=== PATIENT | female | born 1985 | race American Indian/Alaskan Native ===

== ENCOUNTER 2017-05-07 23:43 | Inpatient (IN) | payer BC, OTHER ==
[2017-05-07 23:45] VITALS: BMI 20.5
--- NOTE | 2017-05-08 00:03 | ED PDOC ---
Arrival/HPI <Terry Mckeon - Last Filed: 05/08/17 03:01> - General Historian: Patient - History of Present Illness Time/Duration: 24 hours Symptom Course: Unchanged Quality: Unable to Describe Severity Level: Moderate Context: Sitting, Exertion, Home, Work <Zackery Saab - Last Filed: 05/08/17 06:12> - General Chief Complaint: Palpitations Time Seen by Provider: 05/07/17 23:51 - History of Present Illness Narrative History of Present Illness (Text): 05/08/17 00:00 This is a 31 yo female with no past medical hx presenting to ER with chief complaint of palpitations. 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 Pt says they have been going on x 1 day. They started when she was sitting at work yesterday. She put herself on tele monitor and noticed her HR was very high. She reports an associated lightheaded feeling. Denies chest pain, shortness of breath, fevers, chills, nausea, vomiting, diarrhea, other systemic sx. PMH: Denies PSH: C section FH: heart dx in family Allergies: NKDA Home meds: recently started taking cyproheptadine for decreased appetite Social hx: denies smoking. social drinker. denies drug use. Lives at home with son and brother. Works as a nurse. 05/08/17 01:30 (Zackery Saab) Past Medical History - Provider Review Nursing Documentation Reviewed: Yes - Travel History Have you recently traveled outside [place] w/in the past 3 mons?: No - Past History Past History: No Previous - Infectious Disease Hx of Infectious Diseases: None - Tetanus Immunization Tetanus Immunization: Unknown - Reproductive Menopause: No Currently : No - Psychiatric Hx Substance Use: No <Zackery Saab - Last Filed: 05/08/17 06:12> Family/Social History - Physician Review Nursing Documentation Reviewed: Yes Family/Social History: Hypertension, CAD/IA Smoking Status: Never Smoked Hx Alcohol Use: Yes Frequency of alcohol use: Socially Hx Substance Use: No Hx Substance Use Treatment: No <Zackery Saab - Last Filed: 05/08/17 06:12> Allergies/Home Meds <Terry Mckeon - Last Filed: 05/08/17 03:01> <Zackery Saab - Last Filed: 05/08/17 06:12> Allergies/Adverse Reactions: Allergies NSAIDS (Non-Steroidal Anti-Inflamma Allergy (Verified 05/08/17 03:29) SWELLING FACIAL SWELLING Home Medications: Home Meds Medication Instructions Recorded Confirmed No Known Home Med 05/07/17 05/07/17 Review of Systems - Review of Systems Constitutional: absent: Fatigue, Weight Change Eyes: absent: Vision Changes, Photophobia ENT: absent: Hearing Changes, Tinnitus Respiratory: absent: SOB, Cough Cardiovascular: Palpitations. absent: Chest Pain Gastrointestinal: absent: Abdominal Pain, Stool Changes Genitourinary Female: absent: Dysuria, Frequency Musculoskeletal: absent: Arthralgias, Back Pain Skin: absent: Rash, Pruritis Neurological: Dizziness. absent: Headache Endocrine: absent: Diaphoresis, Polyuria Hemo/Lymphatic: absent: Adenopathy, Easy Bleeding Psychiatric: absent: Anxiety, Depression <Zackery Saab - Last Filed: 05/08/17 06:12> Physical Exam Appearance: Positive for: Well-Appearing Mental Status: Positive for: Alert and Oriented X 3 - Systems Exam Head: Present: Atraumatic, Normocephalic Pupils: Present: PERRL Extroacular Muscles: Present: EOMI Mouth: Present: Moist Mucous Membranes Neck: Present: Normal Range of Motion Respiratory/Chest: Present: Clear to Auscultation. No: Respiratory Distress Cardiovascular: Present: Normal S1, S2, Tachycardic Abdomen: No: Tenderness, Distention, Peritoneal Signs Upper Extremity: Present: Normal Inspection. No: Cyanosis, Edema Lower Extremity: Present: Normal Inspection. No: Edema Neurological: Present: CN II-XII Intact, Speech Normal Skin: Present: Warm, Dry Psychiatric: Present: Alert, Oriented x 3, Normal Insight, Normal Concentration <Zackery Saab - Last Filed: 05/08/17 06:12> Vital Signs Temp Pulse Resp BP Pulse Ox 05/08/17 01:45 98.6 F 110 H 15 118/83 98 05/07/17 23:51 97.8 F 106 H 18 115/74 98 Medical Decision Making <Terry Mckeon - Last Filed: 05/08/17 03:01> - EKG Interpretation Interpreted by ED Physician: Yes Type: 12 lead EKG <Zackery Saab Filed: 05/08/17 06:12> ED Course and Treatment: Patient Seen With Resident: In agreement with resident note which contains more details about the patient. Patient was seen and evaluated with resident. Came up with plan and treatment together. (Terry Mckeon) 05/08/17 01:41 -case discussed with Dr. Elder -pt admitted to service of Dr. Wynn -medical translator paged (Zackery Saab) - Lab Interpretations Lab Results: 05/08/17 00:09 05/08/17 00:09 Lab Results 05/08/17 01:11: Urine Color Yellow, Urine Appearance Clear, Urine pH 6.0, Ur Specific [place] 1.025, Urine Protein 30 H, Urine Glucose (UA) Negative, Urine Ketones Negative, Urine Blood Moderate H, Urine Nitrate Positive H, Urine Bilirubin Negative, Urine Urobilinogen 0.2, Ur Leukocyte Esterase Small H, Urine RBC 1 - 3, Urine WBC 25 - 30, Ur Epithelial Cells 1 - 3, Urine Bacteria Mod 05/08/17 00:40: Urine Opiates Screen Negative, Urine Methadone Screen Negative, Ur Barbiturates Screen Negative, Ur Phencyclidine Scrn Negative, Ur Amphetamines Screen Negative, U Benzodiazepines Scrn Negative, U Oth Cocaine Metabols Negative, U Cannabinoids Screen Negative 05/08/17 00:24: POC Glucose (mg/dL) 103 05/08/17 00:09: TSH 3rd Generation 0.94 05/08/17 00:09: Sodium 141, Potassium 3.7, Chloride 104, Carbon Dioxide 25, Anion Gap 17, BUN 10, Creatinine 0.8, Est GFR ( Amer) > 60, Est GFR (Non- Af Amer) > 60, Random Glucose 100, Calcium 10.3, Magnesium 1.7, Total Bilirubin 0.5, AST 45 H, ALT 24, Alkaline Phosphatase 65, Troponin I < 0.01, Total Protein 8.2, Albumin 4.6, Globulin 3.5, Albumin/Globulin Ratio 1.3 05/08/17 00:09: WBC 12.2 H, RBC 4.19, Hgb 12.9, Hct 35.9 L, MCV 85.7, MCH 30.8, MCHC 35.9, RDW 13.2, Plt Count 258, MPV 10.4, Gran % 70.2 H, Lymph % (Auto) 23.9 , [place] % (Auto) 5.1, Eos % (Auto) 0.6 L, Baso % (Auto) 0.2, Gran # 8.58 H, Lymph # 2.9, [place] # 0.6, Eos # 0.1, Baso # 0.02 - EKG Interpretation EKG Interpretation (Text): 05/08/17 01:52 -initial ekg shows sinus tachycardia with PACS at rate of 104 -repeat ekg shows sinus tachycardia with PVCs at rate of 118 (Zackery Saab) - Medication Orders Current Medication Orders: Famotidine (Pepcid) 20 mg IVP DAILY MARITZA Heparin Sodium (Porcine) (Heparin) 5,000 units SC Q8 MARITZA PRN Reason: Protocol Last Admin: 05/08/17 05:45 Dose: Not Given Non-Admin Reason: Patient Refused Sodium Chloride (Sodium Chloride 0.9%) 1,000 mls @ 100 mls/hr IV .Q10H MARITZA Last Admin: 05/08/17 06:10 Dose: Discontinued Medications Sodium Chloride (Sodium Chloride 0.9%) 1,000 mls @ 75 mls/hr IV .[id number] MARITZA Sodium Chloride 1,000 ml/ IV (SUPPLIES) 1,000 mls @ 3,674.1 mls/hr IV ONCE ONE PRN Reason: 60 ML/KG/HR Stop: 05/08/17 02:09 Last Admin: 05/08/17 02:29 Dose: 3,674.1 mls/hr eMAR Start Stop Document 05/08/17 02:29 AB (Rec: 05/08/17 02:30 AB [facility] [id number]) Intravenous Solution Start Date 05/08/17 Start Time 02:09 End Date 05/08/17 End time 02:39 Total Infusion Time 30 Sodium Chloride (Sodium Chloride 0.9%) 1,000 mls @ 75 mls/hr IV .[id number] MARITZA Last Admin: 05/08/17 02:46 Dose: 75 mls/hr eMAR Start Stop Document 05/08/17 02:46 AB (Rec: 05/08/17 02:46 AB [facility] [id number]) Intravenous Solution Start Date 05/08/17 Start Time 02:46 Ciprofloxacin (Cipro 400mg/200ml Dsw) 400 mg in 200 mls @ 133.3 mls/hr IVPB Q12 MARITZA PRN Reason: Protocol Stop: 05/08/17 04:31 Last Admin: 05/08/17 02:52 Dose: 133.3 mls/hr eMAR Start Stop Document 05/08/17 02:52 AB (Rec: 05/08/17 02:52 AB [facility] [facility] [id number][place] Intravenous Solution Start Date 05/08/17 Start Time 02:52 End Date 05/08/17 Tramadol HCl (Ultram) 25 mg PO STAT STA Stop: 05/08/17 03:34 Last Admin: 05/08/17 03:52 Dose: 25 mg MAR Pain Assessment Document 05/08/17 03:52 CDE (Rec: 05/08/17 03:53 CDE [id number]) Pain Reassessment Is this a pain reassessment? No Presence of Pain Presence of Pain Yes Pain Scale Used Pain Scale Used Numeric Location Upper or Lower Lower Pain Location Body Site Back Description Description Constant Alleviating Factors Medication - PA / WEDGER / Resident Statement MD/DO has reviewed & agrees with the documentation as recorded. /DO has examined the patient and agrees with the treatment plan. <Terry Mckeon - Last Filed: 05/08/17 03:01> Disposition/Present on Arrival <Terry Mckeon - Last Filed: 05/08/17 03:01> - Present on Arrival Any Indicators Present on Arrival: No History of DVT/PE: No History of Uncontrolled Diabetes: No Urinary Catheter: No History of Decub. Ulcer: No History Surgical Site Infection Following: None - Disposition Have Diagnosis and Disposition been Completed?: Yes Disposition Time: 03:00 Patient Plan: Admission <Zackery Saab - Last Filed: 05/08/17 06:12> - Disposition Diagnosis: Near syncope Disposition: HOSPITALIZED Condition: STABLE
[2017-05-08 00:33] LABS: BASO # 0.02 K/mm3 (0.0-2.0); BASO % 0.2 % (0.0-3.0); EOS # 0.1 (0.0-0.7); EOS % 0.6 % (1.5-5.0); GRAN # 8.58 (1.4-6.5); GRAN % 70.2 % (50.0-68.0); HEMATOCRIT 35.9 % (36.0-48.0); LYMPH # 2.9 (1.2-3.4); LYMPH % 23.9 % (22.0-35.0); MEAN CELL VOLUME 85.7 fl (80.0-105.0); MEAN CORPUSCULAR HEMOGLOBIN 30.8 pg (25.0-35.0); MEAN CORPUSCULAR HGB CONC 35.9 g/dl (31.0-37.0); MEAN PLATELET VOLUME 10.4 fl (7.0-11.0); MONO # 0.6 (0.1-0.6); MONO % 5.1 % (1.0-6.0); RED CELL DISTRIBUTION WIDTH 13.2 % (11.5-14.5); WHITE BLOOD COUNT 12.2 10^3/ul (4.5-11.0)
[2017-05-08 00:40] LABS: ALB/GLOB RATIO 1.3 (1.1-1.8); ALKALINE PHOSPHATASE 65 U/L (38-126); ALT/SGPT 24 U/L (7-56); AST/SGOT 45 U/L (14-36); BILIRUBIN,TOTAL 0.5 mg/dL (0.2-1.3); BLOOD UREA NITROGEN 10 mg/dL (7-21); CALCIUM 10.3 mg/dL (8.4-10.5); CARBON DIOXIDE 25 mmol/L (21-33); CHLORIDE 104 mmol/L (98-107); GFR AFRICAN-AMERICAN > 60; GLUCOSE,RANDOM 100 mg/dL (70-110); MAGNESIUM 1.7 mg/dL (1.7-2.2); POTASSIUM 3.7 mmol/L (3.6-5.0); SODIUM 141 mmol/L (132-148); TOTAL PROTEIN 8.2 g/dL (5.8-8.3)
[2017-05-08 00:51] LABS: TROPONIN I < 0.01 ng/mL
[2017-05-08 01:30] LABS: URINE BILIRUBIN NEGATIVE (NEGATIVE); URINE BLOOD MODERATE (NEGATIVE); URINE GLUCOSE (UA) NEGATIVE (NEGATIVE); URINE KETONE NEGATIVE (NEGATIVE); URINE LEUKOCYTE ESTERASE SMALL Leu/uL (NEGATIVE); URINE PROTEIN 30 mg/dL (<30 mg/dL); URINE UROBILINOGEN 0.2 E.U./dL (<1 E.U./dL)
[2017-05-08 01:31] LABS: URINE APPEARANCE CLEAR (CLEAR); URINE COLOR YELLOW (YELLOW)
[2017-05-08 01:42] LABS: URINE BACTERIA MOD (NEG); URINE WBC 25 - 30 /hpf (0-6)
--- NOTE | 2017-05-08 01:59 | CP.PCM.HP ---
History of Present Illness - History of Present Illness History of Present Illness: CC: Palpitations Subjective: HPI: Patient is a 31 year old female with no significant past medical history who presents to the emergency department for evaluation and treatment of palpitations. Patient states she began experiencing palpitations yesterday morning while at work with no provoking event. This is the first occurrence of such symptoms. Patient is a nurse at [employer]. She put herself on tele monitor and noticed her HR was elevated. Admits to localized retrosternal chest tightness when the palpitations are occurring with associated lightheadedness. Denies recent travel and sick contacts. Patient denies intractable headache, fever, chills, dizziness, shortness of breath, abdominal pain, nausea, vomiting, diarrhea, constipation, and urinary symptoms. ROS: 12 point review of systems negative except as indicated in HPI PMHx: none PSHx: c section, tonsillectomy Allergies- NSAIDs- "face becomes swollen" Family Hx: mother- ovarian cancer, father- HIV Social Hx: denies ETOH use, denies tobacco use, denies illicit drug use, works as nurse in [employer] Medications: Please see medication reconciliation PMD: Dr. Chapa in [place] Pharmacy: none Physical Examination: - Constitutional Appears: Non-toxic, No Acute Distress - Head Exam Head Exam: atraumatic, normocephalic - Eye Exam Eye Exam: Normal appearance, PERRL. absent: Scleral icterus - ENT Exam ENT Exam: Mucous Membranes Moist - Neck Exam Neck exam: Normal Inspection - Respiratory Exam Respiratory Exam: Normal Breathing Pattern - Cardiovascular Exam Cardiovascular Exam: tachycardic, +S1, +S2. absent: Gallop, JVD - GI/Abdominal Exam GI & Abdominal Exam: Normal Bowel Sounds, absent: Distended, Guarding, Pulsatile Mass, Rebound, Rigid - Extremities Exam Extremities exam: Negative for: calf tenderness - Neurological Exam Neurological exam: Patient is awake, alert, responds to verbal stimuli, answers questions appropriately, follows commands, and moves extremities past midline - Psychiatric Exam Psychiatric exam: Normal Affect, Normal Mood - Skin Skin Exam: warm and dry Assessment and Plan: Patient is a 29 year old female with no significant past medical history who presents to the emergency department for evaluation and treatment of palpitations. Palpitations - EKGs reviewed and appreciated- sinus tachycardia with intermittent PVCs vs fusion complxes HR 118, QTc 437 - Cardiology consulted- appreciate recommendations - UDS negative - Troponins negative x 1 - cardiac isoenzymes q8h x 3 - place on tele monitor Sepsis; UTI - greater than 2/4 SIRS criteria met in setting of infectious source (elevated white count and tachycardic) - ED contacted to call code sepsis- they want to attain lactate prior to calling code sepsis, lactate is pending - UA positive for leukocyte esterase, nitrates, and urine bacteria - blood cultures x 2 - urine culture - IVF bolus - IVF NS @ 100 after bolus - cipro 400mg IV BID Elevated LFTs - avoid hepatotoxins - monitor closely via CMP - hepatits panel pending - HIV rapid screen pending Prophylaxis - DVT ppx- subq heparin as per immanuel score - GI ppx- famotidine Patient case discussed with and plan approved by attending physician, Dr. Curtis Elder. 05/08/17 01:44 Present on Admission - Present on Admission Any Indicators Present on Admission: No Past Patient History - Infectious Disease Hx of Infectious Diseases: None - Tetanus Immunizations Tetanus Immunization: Unknown - Past Social History Smoking Status: Never Smoked - PSYCHIATRIC Hx Substance Use: No Meds Allergies/Adverse Reactions: Allergies Allergy/AdvReac Type Severity Reaction Status Date / Time NSAIDS (Non-Steroidal Allergy SWELLING Verified 05/08/17 03:29 Anti-Inflamma Results - Vital Signs Recent Vital Signs: Last Vital Signs Temp 97.8 F 05/07/17 23:51 Pulse 106 H 05/07/17 23:51 Resp 18 05/07/17 23:51 BP 115/74 05/07/17 23:51 Pulse Ox 98 05/07/17 23:51 - Labs Result Diagrams: 05/08/17 05:40 05/08/17 00:09 Labs: Laboratory Results - last 24 hr 05/08/17 05/08/17 05/08/17 00:09 00:09 00:09 WBC 12.2 H RBC 4.19 Hgb 12.9 Hct 35.9 L MCV 85.7 MCH 30.8 MCHC 35.9 RDW 13.2 Plt Count 258 MPV 10.4 Gran % 70.2 H Lymph % (Auto) 23.9 [place] % (Auto) 5.1 Eos % (Auto) 0.6 L Baso % (Auto) 0.2 Gran # 8.58 H Lymph # 2.9 [place] # 0.6 Eos # 0.1 Baso # 0.02 Sodium 141 Potassium 3.7 Chloride 104 Carbon Dioxide 25 Anion Gap 17 BUN 10 Creatinine 0.8 Est GFR ( Amer) > 60 Est GFR (Non-Af Amer) > 60 POC Glucose (mg/dL) Random Glucose 100 Calcium 10.3 Magnesium 1.7 Total Bilirubin 0.5 AST 45 H ALT 24 Alkaline Phosphatase 65 Troponin I < 0.01 Total Protein 8.2 Albumin 4.6 Globulin 3.5 Albumin/Globulin Ratio 1.3 TSH 3rd Generation 0.94 Urine Color Urine Appearance Urine pH Ur Specific [place] Urine Protein Urine Glucose (UA) Urine Ketones Urine Blood Urine Nitrate Urine Bilirubin Urine Urobilinogen Ur Leukocyte Esterase Urine RBC Urine WBC Ur Epithelial Cells Urine Bacteria Urine Opiates Screen Urine Methadone Screen Ur Barbiturates Screen Ur Phencyclidine Scrn Ur Amphetamines Screen U Benzodiazepines Scrn U Oth Cocaine Metabols U Cannabinoids Screen 05/08/17 05/08/17 05/08/17 00:24 00:40 01:11 WBC RBC Hgb Hct MCV MCH MCHC RDW Plt Count MPV Gran % Lymph % (Auto) [place] % (Auto) Eos % (Auto) Baso % (Auto) Gran # Lymph # [place] # Eos # Baso # Sodium Potassium Chloride Carbon Dioxide Anion Gap BUN Creatinine Est GFR ( Amer) Est GFR (Non-Af Amer) POC Glucose (mg/dL) 103 Random Glucose Calcium Magnesium Total Bilirubin AST ALT Alkaline Phosphatase Troponin I Total Protein Albumin Globulin Albumin/Globulin Ratio TSH 3rd Generation Urine Color Yellow Urine Appearance Clear Urine pH 6.0 Ur Specific [place] 1.025 Urine Protein 30 H Urine Glucose (UA) Negative Urine Ketones Negative Urine Blood Moderate H Urine Nitrate Positive H Urine Bilirubin Negative Urine Urobilinogen 0.2 Ur Leukocyte Esterase Small H Urine RBC 1 - 3 Urine WBC 25 - 30 Ur Epithelial Cells 1 - 3 Urine Bacteria Mod Urine Opiates Screen Negative Urine Methadone Screen Negative Ur Barbiturates Screen Negative Ur Phencyclidine Scrn Negative Ur Amphetamines Screen Negative U Benzodiazepines Scrn Negative U Oth Cocaine Metabols Negative U Cannabinoids Screen Negative
[2017-05-08] MEDS ORDERED: Sodium Chloride 0.9% 1,000 ML IV SCH ×2 (02:15)
[2017-05-08 02:41] LABS: CHOLESTEROL 129 mg/dL (130-200)
[2017-05-08 02:53] LABS: TROPONIN I < 0.01 ng/mL
[2017-05-08] MEDS ORDERED: Ciprofloxacin 400mg/200ml D5W 400 MG/200 ML BAG IVPB SCH (03:00)
[2017-05-08 03:14] LABS: VENOUS BLOOD GAS BASE EXCESS 2.1 mmol/L (0.0-2.0); VENOUS BLOOD PH 7.35 (7.32-7.43)
[2017-05-08] MEDS: Sodium Chloride 0.9% 1,000 ML IV SCH ×3 (06:10→16:41)
[2017-05-08 06:30] LABS: BASO # 0.01 K/mm3 (0.0-2.0); BASO % 0.1 % (0.0-3.0); EOS % 0.1 % (1.5-5.0); GRAN # 11.51 (1.4-6.5); HEMATOCRIT 31.7 % (36.0-48.0); LYMPH # 0.8 (1.2-3.4); MEAN CELL VOLUME 85.2 fl (80.0-105.0); MEAN CORPUSCULAR HEMOGLOBIN 30.1 pg (25.0-35.0); MEAN CORPUSCULAR HGB CONC 35.3 g/dl (31.0-37.0); MEAN PLATELET VOLUME 10.2 fl (7.0-11.0); MONO # 0.9 (0.1-0.6); MONO % 6.8 % (1.0-6.0); RED CELL DISTRIBUTION WIDTH 13.1 % (11.5-14.5); WHITE BLOOD COUNT 13.2 10^3/ul (4.5-11.0)
[2017-05-08 07:03] LABS: ALB/GLOB RATIO 1.2 (1.1-1.8); ALKALINE PHOSPHATASE 57 U/L (38-126); ALT/SGPT 20 U/L (7-56); AST/SGOT 17 U/L (14-36); BILIRUBIN,TOTAL 0.9 mg/dL (0.2-1.3); BLOOD UREA NITROGEN 10 mg/dL (7-21); CARBON DIOXIDE 25 mmol/L (21-33); CHLORIDE 107 mmol/L (98-107); GFR AFRICAN-AMERICAN > 60; GLUCOSE,RANDOM 106 mg/dL (70-110); POTASSIUM 3.6 mmol/L (3.6-5.0); SODIUM 138 mmol/L (132-148); TOTAL PROTEIN 6.7 g/dL (5.8-8.3)
[2017-05-08 07:55] LABS: TROPONIN I < 0.01 ng/mL
--- NOTE | 2017-05-08 08:29 | RAD ---
HISTORY: palpitations COMPARISON: No prior. FINDINGS: LUNGS: No active pulmonary disease. PLEURA: No significant pleural effusion identified, no pneumothorax apparent. CARDIOVASCULAR: Normal. OSSEOUS STRUCTURES: No significant abnormalities. VISUALIZED UPPER ABDOMEN: Normal. OTHER FINDINGS: None. IMPRESSION: No active disease.
[2017-05-08] MEDS: cefTRIAXone 1 gm 1 GM/100 ML BAG IVPB SCH (11:40)
[2017-05-08] MEDS ORDERED: Metoprolol 1 mg/ml Inj IVP ONE ×2 (12:15→12:17)
[2017-05-08 12:19] LABS: IRON 22 ug/dL (45-180)
[2017-05-08] MEDS ORDERED: Potassium Chloride 20 mEq ER Tab PO ONE (12:28)
--- NOTE | 2017-05-08 12:29 | US ---
PROCEDURE: Ultrasound of the Kidneys HISTORY: R/o pyelonephritis( Kidney, Bladder) COMPARISON: None available. TECHNIQUE: Sonogram of the kidneys. FINDINGS: RIGHT KIDNEY: Measures: 11.4 x 4.6 x 6.0 cm. Normal in size, contour and echogenicity. No stone, solid mass lesion or hydronephrosis visualized. LEFT KIDNEY: Measures: 10.6 x 5.1 x 4.8 cm. Normal in size, contour and echogenicity. No stone, solid mass lesion or hydronephrosis visualized. OTHER FINDINGS: None. IMPRESSION: Unremarkable renal sonogram.
[2017-05-08] MEDS ORDERED: Propranolol 5 mg Tab PO STA (12:31)
--- NOTE | 2017-05-08 12:34 | US ---
PROCEDURE: HISTORY: RETENTION COMPARISON: None TECHNIQUE: Transabdominal scanning of the pelvis performed FINDINGS: Bladder is moderately distended prevoid urine volume 257 mL. No bladder wall thickening or intraluminal masses. Bilateral ureteral jets noted. 0 mL postvoid residual urine volume IMPRESSION: No postvoid residual urine volume. Unremarkable appearing bladder
[2017-05-08] MEDS: Magnesium Oxide 400 mg Tab UD PO SCH ×2 (12:40→17:38)
--- NOTE | 2017-05-08 14:38 | PCM.RRT ---
WOOD MILLER Nurse Assessment - Situation Date: 05/08/17 Time WOOD MILLER was called: 12:11 WOOD MILLER Responder Arrival Time: 12:14 WOOD MILLER Location:: [address] [place] [address] Room Number: [id number] WOOD MILLER Reason for Call: Tachycardia WOOD MILLER Called By: RN - IV IV Inserted during WOOD MILLER?: No - Respiratory Oxygen Delivery Method: Nasal Cannula @L/min Oxygen Flow Rate: 2 Received Nebulizer Treatments:: No Was the Patient Ventilated with Bag/Mask 100% O2?: No Secretions Suctioned?: No Was the Patient Intubated?: No Was the Patient Placed on a Ventilator?: No - Medication Medications Administered During WOOD MILLER: 5mg IVP metoprolol. 5 mg Inderol. 40meq potassium. 400mg magnesium - Diagnostic Test Ordered EKG: Yes Chest X-Ray: No CT Scan: No - Stat Labs Ordered WOOD MILLER Stat Labs Ordered: TROPONIN CPR started during WOOD MILLER?: No - Vital Signs Vital Sign: Rapid Response Vital Sign Blood Pressure 124/67 Pulse Rate 204 Respiratory Rate 16 Temperature 98.5 F Oxygen Saturation 100 - Finger Stick Blood Glucose Finger Stick Blood Glucose: 101 - Time WOOD MILLER Ended Time WOOD MILLER Ended: 12:38 - Vital Signs at end of WOOD MILLER Vital Signs at end of WOOD MILLER: Rapid Response End Vital Sign Blood Pressure 110/54 Pulse Rate 170 Respiratory Rate 16 Temperature 98.0 F O2 Sat by Pulse Oximetry 100 - Recommendations Notifications: Attending Physician, Consultations - Respiratory Oxygen Delivery Method: Nasal Cannula @L/min Oxygen Flow Rate: 2 - Head Head Exam: ATRAUMATIC, NORMAL INSPECTION, NORMOCEPHALIC - Eyes Eye Exam: EOMI, Normal appearance, PERRL. absent: Periorbital tenderness - Respiratory Exam Respiratory Exam: Clear to Ausculation Bilateral, NORMAL BREATHING PATTERN. absent: Chest Wall Tenderness, Prolonged Expiratory Phase, Respiratory Distress - Cardiovascular Exam Cardiovascular Exam: Tachycardia, REGULAR RHYTHM, +S1, +S2. absent: Gallop, Rubs - GI/Abdominal Exam GI & Abdominal Exam: Soft, Normal Bowel Sounds. absent: Guarding, Rigid, Hyperactive Bowel Sounds - Neurological Exam Neurological Exam: Alert, Awake, CN II-XII Intact, Normal Gait, Oriented x3 - Extremities Exam Extremities Exam: Full ROM, Normal Inspection. absent: Joint Swelling, Pedal Edema, Tenderness Plan - Assessment of Findings&Treatment Plan 31 year old female with no past medical history who a rapid response was called as a result of a heart rate in the 200's and complains of palpitations. Patient was seen by medical team and examined. Patient denies any lightheadedness, dizziness, shortness of breath, blurry vision, syncopal episodes, diaphoresis, abdominal, nausea, vomiting, or any other complaints. Dr. Massey and Dr. Jeter were made aware of the patient's condition. Plan: -5 mg Lopressor -5 mg Inderal -Troponins x3. Trend. -STAT EKG -40mg PO of Potassium given. -400mg of Magnesium Oxide given BID. -STAT CBC, CMP, Magnesium, Phosphorous. Will f/u with results.
--- NOTE | 2017-05-08 17:53 | CARD ---
APPROVED REPORT EXAM: Two-dimensional and M-mode echocardiogram with Doppler and color Doppler. INDICATION Palpitations 2D DIMENSIONS Left Atrium (2D)3.5 (1.6-4.0cm)IVSd1.1 (0.7-1.1cm) LVDd3.9 (3.9-5.9cm)PWd1.1 (0.7-1.1cm) LVDs2.7 (2.5-4.0cm)FS (%) 32.2 % LVEF (%)61.0 (>50%) Aortic Valve AoV Peak Wimnlvrp284.0cm/Michael Peak GR.8mmHg Mitral Valve E/A ratio0.0 TDI E/Lateral E'0.0E/Medial E'0.0 Tricuspid Valve TR Peak [id number] [id number] Peak Gr.13mmHg [id number] LEFT VENTRICLE The left ventricle is normal size. There is normal left ventricular wall thickness. The left ventricular function is normal.EF-60-65% There is normal LV segmental wall motion. The left ventricular diastolic function is normal. No left ventricle thrombus noted on this study. There is no ventricular septal defect visualized. There is no left ventricular aneurysm. There is no mass noted in the left ventricle. RIGHT VENTRICLE The right ventricle is normal size. There is normal right ventricular wall thickness. The right ventricular systolic function is normal. ATRIA The left atrium size is normal. The right atrium size is normal. The interatrial septum is intact with no evidence for an atrial septal defect. AORTIC VALVE The aortic valve is normal in structure. No aortic regurgitation is present. There is no aortic valvular stenosis. There is no aortic valvular vegetation. MITRAL VALVE The mitral valve is thickened but opens well. Mitral regurgitation is trace. There is no mitral valve stenosis. There is no evidence of mitral valve prolapse. TRICUSPID VALVE The tricuspid valve leaflets are thickened , but open well. There is trace tricuspid regurgitation.[id number]-23 mmof hg. There is no tricuspid valve stenosis. There is no tricuspid valve prolapse or vegetation. PULMONIC VALVE The pulmonic valve is borderline thickened. There is no pulmonic valvular regurgitation. There is no pulmonic valvular stenosis. GREAT VESSELS The aortic root is normal in size. The ascending aorta is normal in size. The pulmonary artery is normal. The IVC is normal in size and collapses >50% with inspiration. PERICARDIAL EFFUSION There is no pleural effusion. There is no pericardial effusion. <Conclusion> Normal chamber Size. EF-60-65% Trace MR/TR [id number] mmof hg.
[2017-05-08] MEDS ORDERED: Sodium Chloride 0.9% 500 ML IV STA (18:40)
[2017-05-08 18:45] LABS: FOLATE 3.7 ng/mL
[2017-05-08 18:53] LABS: TROPONIN I < 0.01 ng/mL
--- NOTE | 2017-05-08 20:23 | CON ---
DATE: 05/09/2017 CONSULTING SERVICE: Cardiology. CONSULTING PHYSICIAN: Dr. Brent Massey. REASON FOR CONSULTATION: Palpitation, dizzy, and chest pain. 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 Denies any chest pain, but feels with palpitation and chest discomfort. No prior episode of chest pain or climbing stairs or going up and down. No history of prior episode of chest pain or shortness of breath or palpitation prior to yesterday. PAST MEDICAL HISTORY: Nothing significant. CURRENT MEDICATIONS: None. FAMILY HISTORY: Nothing significant. PAST SURGICAL HISTORY: Significant for tonsillectomy at the age of 20 and hysterectomy at 10 years ago. ALLERGIES: NSAID GETS ANGIOEDEMA. REVIEW OF SYSTEMS: As per HPI. PHYSICAL EXAMINATION: VITAL SIGNS: As follows; temperature 98.4, heart rate 110, blood pressure 103/59. HEENT: PERRLA intact. NECK: Supple. No carotid bruits or thyromegaly. CHEST: Clear to auscultation. HEART: S1 and S2 regular. ABDOMEN: Soft. EXTREMITIES: Clubbing and cyanosis negative. LABORATORY DATA: Blood workup as follows: WBC 13.2, hemoglobin 11.2, hematocrit 31.7, platelet count 218. Chemistry shows sodium 138, potassium 3.6, chloride 110, carbon dioxide 25, anion gap of 9, BUN 10, creatinine 0.7. Urine shows moderate blood, positive for nitrites and elevated WBC, possible tachycardia secondary to rule out sepsis,rule out urinary tract infection, rule out hyperthyroidism. RECOMMENDATIONS: We will get echo to rule out structural heart disease. Get the lipid profile, TSH, hemoglobin A1c,sed rate, and we will sent urine for C&S and further recommendation depending upon hospital course. We will start empirically Rocephin. We will follow with you. I think the tachycardia resolved. Ultrasound of the abdomen rule out pyelonephritis and will call ID to follow. Brent Massey MD
--- NOTE | 2017-05-08 23:16 | CARD ---
APPROVED REPORT EKG Measurement Heart [id number] <Conclusion> Sinus rhythm with premature atrial complexes Otherwise normal ECG
--- NOTE | 2017-05-08 23:42 | CP.PCM.CON ---
History of Present Illness - History of Present Illness History of Present Illness: Infectious Disease Consultation: May 08, 2017 Patient is a 31 year old female with no significant past medical history who presents to the emergency department for evaluation and treatment of palpitations. Patient states she began experiencing palpitations yesterday morning while at work with no provoking event. This is the first occurrence of such symptoms. 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 Admits to localized retrosternal chest tightness when the palpitations are occurring with associated lightheadedness. Denies recent travel and sick contacts. Patient denies intractable headache, fever, chills, dizziness, shortness of breath, abdominal pain, nausea, vomiting, diarrhea, constipation, and urinary symptoms. PMHx: none PSHx: , tonsillectomy Allergies: NSAIDs- "face becomes swollen" Family Hx: mother- ovarian cancer, father- HIV Social Hx: denies ETOH use, denies tobacco use, denies illicit drug use, works as nurse in [employer] Active Medications Acetaminophen (Tylenol 325mg Tab) 650 mg PO Q6H PRN PRN Reason: Fever >100.4 F Last Admin: 05/08/17 14:53 Dose: 650 mg Famotidine (Pepcid) 20 mg PO DAILY [facility] Heparin Sodium (Porcine) (Heparin) 5,000 units SC Q8 [facility] PRN Reason: Protocol Last Admin: 05/08/17 21:48 Dose: Not Given Sodium Chloride (Sodium Chloride 0.9%) 1,000 mls @ 100 mls/hr IV .Q10H [facility] Last Admin: 05/08/17 16:41 Dose: 100 mls/hr Ceftriaxone Sodium (Rocephin 1 Gram Ivpb (D5w)) 1 gm in 100 mls @ 100 mls/hr IVPB DAILY [facility] PRN Reason: Protocol Last Admin: 05/08/17 11:40 Dose: 100 mls/hr Magnesium Oxide (Mag-Ox) 400 mg PO BID [facility] Last Admin: 05/08/17 17:38 Dose: 400 mg Propranolol HCl (Inderal) 20 mg PO TID [facility] Last Admin: 05/08/17 17:38 Dose: 20 mg Verapamil HCl (Verapamil Inj) 2.5 mg IVP Q6H PRN PRN Reason: for Heart rate >130 ROS: No fevers, chills, nausea, vomiting, diarrhea, headaches, dizziness, chest pain , abdominal pain, melena, hematuria, hematemesis, hematochezia, depression, anxiety. Tachycardia. Past Patient History - Infectious Disease Hx of Infectious Diseases: None - Tetanus Immunizations Tetanus Immunization: Unknown - Past Social History Smoking Status: Never Smoked - CARDIAC Hx Cardiac Disorders: Yes Hx Cardia Arrhythmia: Yes - PULMONARY Hx Respiratory Disorders: No - NEUROLOGICAL Hx Neurological Disorder: No - HEENT Hx HEENT Problems: No - RENAL Hx Chronic Kidney Disease: No - ENDOCRINE/METABOLIC Hx Endocrine Disorders: No - HEMATOLOGICAL/ONCOLOGICAL Hx Blood Disorders: No - INTEGUMENTARY Hx Dermatological Problems: No - MUSCULOSKELETAL/RHEUMATOLOGICAL Hx Musculoskeletal Disorders: No Hx Falls: No - GASTROINTESTINAL Hx Gastrointestinal Disorders: No - GENITOURINARY/GYNECOLOGICAL Hx Genitourinary Disorders: No - PSYCHIATRIC Hx Substance Use: No - SURGICAL HISTORY Hx Surgeries: No Meds Allergies/Adverse Reactions: Allergies Allergy/AdvReac Type Severity Reaction Status Date / Time NSAIDS (Non-Steroidal Allergy SWELLING Verified 05/08/17 03:29 Anti-Inflamma - Medications Medications: Current Medications Acetaminophen (Tylenol 325mg Tab) 650 mg PO Q6H PRN PRN Reason: Fever >100.4 F Last Admin: 05/08/17 14:53 Dose: 650 mg Famotidine (Pepcid) 20 mg PO DAILY [facility] Heparin Sodium (Porcine) (Heparin) 5,000 units SC Q8 [facility] PRN Reason: Protocol Last Admin: 05/08/17 21:48 Dose: Not Given Sodium Chloride (Sodium Chloride 0.9%) 1,000 mls @ 100 mls/hr IV .Q10H [facility] Last Admin: 05/08/17 16:41 Dose: 100 mls/hr Ceftriaxone Sodium (Rocephin 1 Gram Ivpb (D5w)) 1 gm in 100 mls @ 100 mls/hr IVPB DAILY [facility] PRN Reason: Protocol Last Admin: 05/08/17 11:40 Dose: 100 mls/hr Magnesium Oxide (Mag-Ox) 400 mg PO BID [facility] Last Admin: 05/08/17 17:38 Dose: 400 mg Propranolol HCl (Inderal) 20 mg PO TID [facility] Last Admin: 05/08/17 17:38 Dose: 20 mg Verapamil HCl (Verapamil Inj) 2.5 mg IVP Q6H PRN PRN Reason: for Heart rate >130 Physical Exam - Constitutional Appears: Non-toxic - Head Exam Head Exam: ATRAUMATIC, NORMOCEPHALIC - Eye Exam Eye Exam: EOMI, PERRL Pupil Exam: NORMAL ACCOMODATION, PERRL - ENT Exam ENT Exam: Mucous Membranes Moist, Normal External Ear Exam, TM's Normal Bilaterally - Neck Exam Neck exam: Positive for: Full Rom, Normal Inspection - Respiratory Exam Respiratory Exam: Clear to Auscultation Bilateral, NORMAL BREATHING PATTERN. absent: Rales, Rhonchi, Wheezes - Cardiovascular Exam Cardiovascular Exam: Tachycardia, +S1, +S2 - GI/Abdominal Exam GI & Abdominal Exam: Normal Bowel Sounds, Soft. absent: Distended, Tenderness - Extremities Exam Extremities exam: Positive for: full ROM, normal inspection - Neurological Exam Neurological exam: Alert, CN II-XII Intact, Oriented x3 - Psychiatric Exam Psychiatric exam: Normal Affect, Normal Mood - Skin Skin Exam: Intact, Normal Color Results - Vital Signs Recent Vital Signs: Last Vital Signs Temp 100.2 F H 05/08/17 17:29 Pulse 104 H 05/08/17 18:00 Resp 19 05/08/17 17:29 BP 102/68 05/08/17 17:38 Pulse Ox 98 05/08/17 06:00 - Labs Result Diagrams: 05/08/17 05:40 05/08/17 05:40 Labs: Laboratory Results - last 24 hr 05/08/17 18:15 Lactate Dehydrogenase 230 L Total Creatine Kinase < 20 L Troponin I < 0.01 Assessment & Plan - Assessment and Plan (Free Text) Assessment: 31 yo AA female with sudden onset of tachycardia. Urinalysis suggests UTI. Urine cultures pending. Started on IV Rocephin which is reasonable first choice. 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 If tachycardia persists tomorrow, I would consider use of meropenem at that point. No other medical history. Supportive care. Thank you for allowing me to participate in the care of the patient, we will follow with you.
--- NOTE | 2017-05-08 23:43 | CARD ---
APPROVED REPORT EKG Measurement Heart [id number] [id number] <Conclusion> Sinus rhythm with APCs Otherwise normal ECG
--- NOTE | 2017-05-09 00:10 | CARD ---
APPROVED REPORT EKG Measurement Heart [id number] 164P71 [id number] <Conclusion> Sinus tachycardia with frequent APCs Possible Left atrial enlargement Nonspecific T wave abnormality Abnormal ECG
--- NOTE | 2017-05-09 00:11 | CARD ---
APPROVED REPORT EKG Measurement Heart [id number] [id number] <Conclusion> Sinus tachycardia with frequent APCs Possible Left atrial enlargement Abnormal ECG
[2017-05-09] MEDS: Sodium Chloride 0.9% 1,000 ML IV SCH ×4 (03:38→23:44)
[2017-05-09 06:53] LABS: BASO # 0.01 K/mm3 (0.0-2.0); BASO % 0.1 % (0.0-3.0); EOS % 0.3 % (1.5-5.0); GRAN # 6.98 (1.4-6.5); GRAN % 76.8 % (50.0-68.0); HEMATOCRIT 31.5 % (36.0-48.0); LYMPH # 1.3 (1.2-3.4); LYMPH % 14.7 % (22.0-35.0); MEAN CELL VOLUME 84.9 fl (80.0-105.0); MEAN CORPUSCULAR HEMOGLOBIN 30.2 pg (25.0-35.0); MEAN CORPUSCULAR HGB CONC 35.6 g/dl (31.0-37.0); MEAN PLATELET VOLUME 10.1 fl (7.0-11.0); MONO # 0.7 (0.1-0.6); MONO % 8.1 % (1.0-6.0); RED CELL DISTRIBUTION WIDTH 13.1 % (11.5-14.5); WHITE BLOOD COUNT 9.1 10^3/ul (4.5-11.0)
[2017-05-09 07:17] LABS: ALB/GLOB RATIO 1.1 (1.1-1.8); ALKALINE PHOSPHATASE 55 U/L (38-126); ALT/SGPT 26 U/L (7-56); AST/SGOT 24 U/L (14-36); BILIRUBIN,TOTAL 0.6 mg/dL (0.2-1.3); BLOOD UREA NITROGEN 8 mg/dL (7-21); CALCIUM 8.4 mg/dL (8.4-10.5); CARBON DIOXIDE 22 mmol/L (21-33); CHLORIDE 109 mmol/L (98-107); GFR AFRICAN-AMERICAN > 60; GLUCOSE,RANDOM 94 mg/dL (70-110); MAGNESIUM 1.7 mg/dL (1.7-2.2); PHOSPHOROUS 2.5 mg/dL (2.5-4.5); SODIUM 138 mmol/L (132-148); TOTAL PROTEIN 6.3 g/dL (5.8-8.3)
[2017-05-09] MEDS: Magnesium Oxide 400 mg Tab UD PO SCH ×2 (09:26→18:27)
[2017-05-09] MEDS: cefTRIAXone 1 gm 1 GM/100 ML BAG IVPB SCH (10:20)
[2017-05-09 11:27] LABS: FREE T4 0.81 ng/dL (0.78-2.19)
[2017-05-09 11:41] LABS: THYROID STIMULATING HORMONE 0.47 mIU/mL (0.46-4.68)
[2017-05-09] MEDS ORDERED: Digoxin 500 mcg/2ml (0.5 mg/2ml) Inj IVP ONE ×2 (11:44→16:00)
--- NOTE | 2017-05-09 12:26 | CP.PCM.PN ---
Subjective - Date & Time of Evaluation Date of Evaluation: 05/09/17 Time of Evaluation: 07:50 - Subjective Subjective: PGY [address] CHILDRESS/DR. SANTOS Patient seen and examined on telemetry floor. No acute events overnight reported. Past 24 hours patient had a [employer] called for elevated BP 200's. Patient was stabalized with IV medications, labs were drawn for further evaluation. Dr. Massey was made aware and patient plan was altered accordingly. Patient indicates today she still feels palpitations. She denies chest pain, shortness of breath, abdominal discomfort, n/v/f/c, dizziness, syncope. Objective - Vital Signs/Intake and Output Vital Signs (last 24 hours): Temp Pulse Resp BP Pulse Ox 98.5 F 88 20 110/84 100 05/09/17 12:00 05/09/17 12:00 05/09/17 12:00 05/09/17 12:00 05/09/17 06:00 Intake and Output: 05/09/17 05/09/17 06:59 18:59 Intake Total 480 Output Total 1900 Balance -1420 - Medications Medications: Current Medications Acetaminophen (Tylenol 325mg Tab) 650 mg PO Q6H PRN PRN Reason: Fever >100.4 F Last Admin: 05/08/17 14:53 Dose: 650 mg Famotidine (Pepcid) 20 mg PO DAILY [facility] Last Admin: 05/09/17 09:26 Dose: 20 mg Heparin Sodium (Porcine) (Heparin) 5,000 units SC Q8 [facility] PRN Reason: Protocol Last Admin: 05/09/17 08:30 Dose: Not Given Sodium Chloride (Sodium Chloride 0.9%) 1,000 mls @ 100 mls/hr IV .Q10H [facility] Last Admin: 05/09/17 10:44 Dose: Not Given Ceftriaxone Sodium (Rocephin 1 Gram Ivpb (D5w)) 1 gm in 100 mls @ 100 mls/hr IVPB DAILY [facility] PRN Reason: Protocol Last Admin: 05/09/17 10:20 Dose: 100 mls/hr Magnesium Oxide (Mag-Ox) 400 mg PO BID [facility] Last Admin: 05/09/17 09:26 Dose: 400 mg Propranolol HCl (Inderal) 20 mg PO TID [facility] Last Admin: 05/09/17 09:24 Dose: 20 mg Verapamil HCl (Verapamil Inj) 2.5 mg IVP Q6H PRN PRN Reason: for Heart rate >130 - Labs Labs: 05/09/17 06:30 05/09/17 06:30 - Constitutional Appears: No Acute Distress - Head Exam Head Exam: ATRAUMATIC, NORMAL INSPECTION, NORMOCEPHALIC - Eye Exam Eye Exam: EOMI, PERRL Pupil Exam: PERRL - ENT Exam ENT Exam: Mucous Membranes Moist - Neck Exam Neck Exam: Full ROM - Respiratory Exam Respiratory Exam: Clear to Ausculation Bilateral, NORMAL BREATHING PATTERN. absent: Rales, Rhonchi, Wheezes - Cardiovascular Exam Cardiovascular Exam: Tachycardia, REGULAR RHYTHM, +S1, +S2 - GI/Abdominal Exam GI & Abdominal Exam: Soft, Normal Bowel Sounds. absent: Firm, Guarding - Extremities Exam Extremities Exam: Normal Capillary Refill. absent: Pedal Edema, Tenderness - Back Exam Back Exam: NORMAL INSPECTION - Neurological Exam Neurological Exam: Alert, Awake, Normal Gait, Oriented x3 Neuro motor strength exam: Left Upper Extremity: 5, Right Upper Extremity: 5, Left Lower Extremity: 5, Right Lower Extremity: 5 - Psychiatric Exam Psychiatric exam: Normal Affect, Normal Mood - Skin Skin Exam: Dry, Intact. absent: Rash Assessment and Plan (1) Tachycardia Status: Acute (2) Near syncope Status: Acute - Assessment and Plan (Free Text) Assessment: Patient is a 29 year old female with no significant past medical history who presented to the emergency department for evaluation and treatment of palpitations. Patient currently on telemetry floor for further medical evaluation and treatment. Plan: Palpitations - EKG on admission reviewed and appreciated- sinus tachycardia with intermittent PVCs vs fusion complxes HR 118, QTc 437 - Further monitoring shows elevated HR, SVT, sinus tachycardia, continued mobitz type II picture - Cardiology consulted Dr. Massey consulted, appreciate recs - TSH, HgA1c, urine C&S follow up, US of abdomen r/o pyelonephritis - Verapamil 2.5mg Q6H PRN - TSH, T3, T4 wnl - Consider EPS workup, will discuss with cardio UTI - greater than 2/4 SIRS criteria met in setting of infectious source (elevated white count and tachycardic) - UA positive for leukocyte esterase, nitrates, and urine bacteria - blood cultures x 2 negative to date - urine culture pending - IVF NS @ 100 after bolus - Tylenol prn pain and fever - Rocephin Anemia - Iron panel showing low % sat and iron - VB12, Folate wnl - Peripheral smear pending Elevated LFTs - improved - avoid hepatotoxins - hepatits panel negative - HIV negative Prophylaxis - DVT ppx- subq heparin refused by patient, on SCDS - GI ppx- famotidine Patient case discussed with and plan approved by attending physician
--- NOTE | 2017-05-09 14:37 | PN ---
DATE: REASON FOR CONSULTATION AND FOLLOWUP: Palpitation, dizzy, chest pain, and SVT. 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 The patient started verapamil and propranolol, but still off and on goes, non-sustained SVT is better since yesterday. Today, heart rate was 72 now, but earlier she had 120 heart rate. Echo showed no significant structural heart disease. PHYSICAL EXAMINATION: VITAL SIGNS: As follows; temperature afebrile, heart rate is 88, and blood pressure is 110/80. HEENT: PERRLA. Extraocular muscles intact. NECK: Supple. No carotid bruits or thyromegaly. CHEST: Clear to auscultation. HEART: S1 and S2, regular. ABDOMEN: Soft. EXTREMITIES: Clubbing and cyanosis negative. LABORATORY DATA: Blood workup as follows: WBC 9.9, hemoglobin 11.2, hematocrit 31.5, and platelet count 205. Chemistry shows sodium 130, potassium 4, chloride 109, carbon dioxide 29, anion gap of 11, BUN 8, and creatinine 0.7. Troponin remains 0.01, negative. The patient done echo yesterday that shows normal chamber ejection fraction of 65%, trace MR, trace TR, RV systolic pressure of 23 mmHg. Ultrasound renal done yesterday because the patient had UTI that showed unremarkable renal sonogram. The patient had low-grade fever this morning and remained SVT. RECOMMENDATIONS: We will give one dose of digoxin and one dose later. We will continue propranolol 20 mg t.i.d. Monitor heart rate. Continue DVT prophylaxis. TSH 0.47. We will follow with you. Thank you Dr. Wynn for providing us the opportunity in taking care of the patient, Nas Chandler. Brent Massey MD
--- NOTE | 2017-05-09 18:24 | CP.PCM.PN ---
Subjective - Date & Time of Evaluation Date of Evaluation: 05/09/17 Time of Evaluation: 17:00 - Subjective Subjective: Infectious Disease Follow Up: May 09, 2017 Patient is a 31 year old female with no significant past medical history who presents to the emergency department for evaluation and treatment of palpitations. Patient states she began experiencing palpitations yesterday morning while at work with no provoking event. This is the first occurrence of such symptoms. 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 She put herself on tele monitor and noticed her HR was elevated. Admits to localized retrosternal chest tightness when the palpitations are occurring with associated lightheadedness. Denies recent travel and sick contacts. Patient denies intractable headache, fever, chills, dizziness, shortness of breath, abdominal pain, nausea, vomiting, diarrhea, constipation, and urinary symptoms. Patient had severely elevated blood pressure this morning. Tachycardic. Objective - Vital Signs/Intake and Output Vital Signs (last 24 hours): Temp Pulse Resp BP Pulse Ox 99.9 F H 106 H 20 132/80 95 05/09/17 16:46 05/09/17 16:46 05/09/17 16:46 05/09/17 16:46 05/09/17 16:46 Intake and Output: 05/09/17 05/09/17 06:59 18:59 Intake Total 480 300 Output Total 1900 1200 Balance -1420 -900 - Medications Medications: Current Medications Acetaminophen (Tylenol 325mg Tab) 650 mg PO Q6H PRN PRN Reason: Fever >100.4 F Last Admin: 05/09/17 16:22 Dose: 650 mg Famotidine (Pepcid) 20 mg PO DAILY [facility] Last Admin: 05/09/17 09:26 Dose: 20 mg Heparin Sodium (Porcine) (Heparin) 5,000 units SC Q8 [facility] PRN Reason: Protocol Last Admin: 05/09/17 13:53 Dose: Not Given Sodium Chloride (Sodium Chloride 0.9%) 1,000 mls @ 100 mls/hr IV .Q10H [facility] Last Admin: 05/09/17 14:21 Dose: 100 mls/hr Ceftriaxone Sodium (Rocephin 1 Gram Ivpb (D5w)) 1 gm in 100 mls @ 100 mls/hr IVPB DAILY [facility] PRN Reason: Protocol Last Admin: 05/09/17 10:20 Dose: 100 mls/hr Magnesium Oxide (Mag-Ox) 400 mg PO BID [facility] Last Admin: 05/09/17 09:26 Dose: 400 mg Propranolol HCl (Inderal) 20 mg PO TID [facility] Last Admin: 05/09/17 13:53 Dose: 20 mg Verapamil HCl (Verapamil Inj) 2.5 mg IVP Q6H PRN PRN Reason: for Heart rate >130 - Labs Labs: 05/09/17 06:30 05/09/17 06:30 - Constitutional Appears: Non-toxic, No Acute Distress - Head Exam Head Exam: ATRAUMATIC, NORMOCEPHALIC - Eye Exam Eye Exam: EOMI, PERRL Pupil Exam: NORMAL ACCOMODATION, PERRL - ENT Exam ENT Exam: Mucous Membranes Moist, Normal External Ear Exam, TM's Normal Bilaterally - Neck Exam Neck Exam: Full ROM, Normal Inspection - Respiratory Exam Respiratory Exam: Clear to Ausculation Bilateral, NORMAL BREATHING PATTERN. absent: Rales, Rhonchi, Wheezes - Cardiovascular Exam Cardiovascular Exam: REGULAR RHYTHM, RRR, +S1, +S2 - GI/Abdominal Exam GI & Abdominal Exam: Soft, Normal Bowel Sounds. absent: Distended, Tenderness - Extremities Exam Extremities Exam: Full ROM, Normal Inspection - Neurological Exam Neurological Exam: Alert, Awake, CN II-XII Intact, Oriented x3 - Psychiatric Exam Psychiatric exam: Normal Affect, Normal Mood - Skin Skin Exam: Intact, Normal Color Assessment and Plan - Assessment and Plan (Free Text) Assessment: 31 yo AA female with sudden onset of tachycardia. Urinalysis suggests UTI. Urine cultures pending. Started on IV Rocephin which is reasonable first choice. 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 As tachycardia is persisting, I would use of meropenem at that point. No other medical history. This morning the patient had severely elevated blood pressure. Persistent tachycardia. Supportive care. Thank you for allowing me to participate in the care of the patient, we will follow with you.
--- NOTE | 2017-05-09 18:55 | CARD ---
APPROVED REPORT EKG Measurement Heart [id number] [place] 156P73 [id number] <Conclusion> Sinus rhythm with premature atrial complexes Otherwise normal ECG
[2017-05-09] MEDS: Meropenem 500 MG in Sodium Chloride 0.9% 100 ML IVPB SCH (21:46)
[2017-05-10] MEDS: Sodium Chloride 0.9% 1,000 ML IV SCH ×3 (03:00→15:32)
[2017-05-10] MEDS: Meropenem 500 MG in Sodium Chloride 0.9% 100 ML IVPB SCH ×3 (05:22→22:28)
[2017-05-10 06:38] LABS: BASO # 0.01 K/mm3 (0.0-2.0); BASO % 0.2 % (0.0-3.0); EOS # 0.1 (0.0-0.7); EOS % 1.3 % (1.5-5.0); GRAN # 3.92 (1.4-6.5); GRAN % 61.2 % (50.0-68.0); HEMATOCRIT 31.4 % (36.0-48.0); LYMPH # 1.6 (1.2-3.4); LYMPH % 24.2 % (22.0-35.0); MEAN CELL VOLUME 84.2 fl (80.0-105.0); MEAN CORPUSCULAR HEMOGLOBIN 29.8 pg (25.0-35.0); MEAN CORPUSCULAR HGB CONC 35.4 g/dl (31.0-37.0); MEAN PLATELET VOLUME 9.9 fl (7.0-11.0); MONO # 0.8 (0.1-0.6); MONO % 13.1 % (1.0-6.0); RED CELL DISTRIBUTION WIDTH 12.9 % (11.5-14.5); WHITE BLOOD COUNT 6.4 10^3/ul (4.5-11.0)
[2017-05-10 07:08] LABS: ALB/GLOB RATIO 1.1 (1.1-1.8); ALKALINE PHOSPHATASE 53 U/L (38-126); ALT/SGPT 39 U/L (7-56); AST/SGOT 35 U/L (14-36); BILIRUBIN,TOTAL 0.6 mg/dL (0.2-1.3); BLOOD UREA NITROGEN 8 mg/dL (7-21); CALCIUM 8.6 mg/dL (8.4-10.5); CARBON DIOXIDE 25 mmol/L (21-33); CHLORIDE 108 mmol/L (98-107); GFR AFRICAN-AMERICAN > 60; GLUCOSE,RANDOM 87 mg/dL (70-110); POTASSIUM 3.7 mmol/L (3.6-5.0); SODIUM 138 mmol/L (132-148); TOTAL PROTEIN 6.4 g/dL (5.8-8.3)
[2017-05-10] MEDS ORDERED: Digoxin 500 mcg/2ml (0.5 mg/2ml) Inj IVP STA (08:27)
[2017-05-10 08:34] VITALS: PULSE 112
[2017-05-10] MEDS: Magnesium Oxide 400 mg Tab UD PO SCH ×2 (09:37→18:11)
--- NOTE | 2017-05-10 11:10 | PN ---
DATE: 05/10/2017 REASON FOR CONSULTATION: Dizziness, chest pain, SVT, recurrent. SUBJECTIVE: The patient denies any chest pain, shortness of breath, feels better, only one episode technology recruiter, and the patient's SVT broke itself. PHYSICAL EXAMINATION: VITAL SIGNS: As follows; temperature afebrile, heart rate 100, blood pressure 106/68. HEENT: PERRLA, intact. NECK: Supple. No carotid bruits or thyromegaly. CHEST: Clear to auscultation. HEART: S1 and S2, regular. ABDOMEN: Soft. EXTREMITIES: Clubbing and cyanosis negative. LABORATORY DATA: EKG, normal sinus, heart rate 70. Blood workup; WBC 6.5, hemoglobin 11.2, hematocrit 31.4, and platelet count 191. Chemistry shows sodium 132, potassium 3.7, chloride 105, carbon dioxide 25, anion gap of 9, BUN 8, and creatinine 0.6. TSH 0.47. IMPRESSION: Recurrent supraventricular tachycardia, blocked atrial premature contractions (APC). RECOMMENDATION: We will start digoxin 0.25 mg daily. Continue propranolol 20 mg t.i.d., ambulate, discontinue IV fluid. If the patient remained stable, possibly will be discharged to night or tomorrow morning, ambulate. If the patient continues with recurrent symptoms, consider radiofrequency ablation or if the patient had symptoms again, may consider radiofrequency ablation. Discussed in length with the patient. The patient is a nursing RN and understood it. Also, discussed with the patient and her boyfriend. The patient's echo shows essentially normal echo, no significant structural heart disease noted, normal chamber size, ejection fraction 60-65%, trace MR, trace TR, RV systolic pressure of 23. We will start digoxin 0.25 mg p.o. daily in addition to beta-fercho. We will follow with you. Thank you Dr. Wynn, for providing us the opportunity in taking care of the patient, Ramesh Lovell. Brent Massey MD
[2017-05-10] MEDS: Digoxin 250 mcg (0.25 mg) Tab PO SCH (14:07)
--- NOTE | 2017-05-10 15:38 | CP.PCM.PN ---
Subjective - Date & Time of Evaluation Date of Evaluation: 05/10/17 Time of Evaluation: 09:05 - Subjective Subjective: PGY [address] CHILDRESS/DR. SANTOS Patient seen and examined on telemetry floor. No acute events overnight reported. Patient continues to experience periodic elevated heart rate, SVT pattern with HR of 150-190 with return to 100s today after prn verapamil. Patient denies chest pain, chest pressure, shortness of breath outside of AM episode, abdominal pain, nausea, vomiting, fever, chills. Patient continues to experience palpitations through out day at rest. Denies dizziness or shortness of breath with ambulation. Objective - Vital Signs/Intake and Output Vital Signs (last 24 hours): Temp Pulse Resp BP Pulse Ox 97.6 F 92 H 20 101/64 99 05/10/17 11:40 05/10/17 14:06 05/10/17 11:40 05/10/17 14:06 05/10/17 05:59 Intake and Output: 05/10/17 05/10/17 06:59 18:59 Intake Total 1860 Output Total 2825 Balance -965 - Medications Medications: Current Medications Acetaminophen (Tylenol 325mg Tab) 650 mg PO Q6H PRN PRN Reason: Fever >100.4 F Last Admin: 05/10/17 14:23 Dose: 650 mg Digoxin (Lanoxin) 0.25 mg PO 1400 [facility] Last Admin: 05/10/17 14:07 Dose: Not Given Famotidine (Pepcid) 20 mg PO DAILY [facility] Last Admin: 05/10/17 09:37 Dose: 20 mg Heparin Sodium (Porcine) (Heparin) 5,000 units SC Q8 [facility] PRN Reason: Protocol Last Admin: 05/10/17 14:07 Dose: Not Given Sodium Chloride (Sodium Chloride 0.9%) 1,000 mls @ 100 mls/hr IV .Q10H [facility] Last Admin: 05/10/17 06:17 Dose: Not Given Meropenem 500 mg/ Sodium (Chloride) 100 mls @ 100 mls/hr IVPB Q8 [facility] PRN Reason: Protocol Last Admin: 05/10/17 14:07 Dose: 100 mls/hr Magnesium Oxide (Mag-Ox) 400 mg PO BID [facility] Last Admin: 05/10/17 09:37 Dose: 400 mg Propranolol HCl (Inderal) 20 mg PO TID [facility] Last Admin: 05/10/17 14:06 Dose: 20 mg Verapamil HCl (Verapamil Inj) 2.5 mg IVP Q6H PRN PRN Reason: for Heart rate >130 Last Admin: 05/10/17 09:46 Dose: 2.5 mg - Labs Labs: 05/10/17 06:00 05/10/17 06:00 - Constitutional Appears: Non-toxic - Head Exam Head Exam: ATRAUMATIC, NORMAL INSPECTION, NORMOCEPHALIC - Eye Exam Eye Exam: EOMI, PERRL - ENT Exam ENT Exam: Mucous Membranes Moist - Neck Exam Neck Exam: Full ROM. absent: Thyromegaly - Respiratory Exam Respiratory Exam: Clear to Ausculation Bilateral, NORMAL BREATHING PATTERN. absent: Rales, Rhonchi, Wheezes - Cardiovascular Exam Cardiovascular Exam: Tachycardia. absent: JVD - GI/Abdominal Exam GI & Abdominal Exam: Soft, Normal Bowel Sounds. absent: Firm, Guarding - Extremities Exam Extremities Exam: Normal Inspection. absent: Calf Tenderness, Pedal Edema - Back Exam Back Exam: NORMAL INSPECTION. absent: paraspinal tenderness, vertebral tenderness - Neurological Exam Neurological Exam: Alert, Awake, Normal Gait, Oriented x3 Neuro motor strength exam: Left Upper Extremity: 5, Right Upper Extremity: 5, Left Lower Extremity: 5, Right Lower Extremity: 5 - Psychiatric Exam Psychiatric exam: Normal Affect, Normal Mood - Skin Skin Exam: Dry, Intact. absent: Rash Assessment and Plan (1) Tachycardia Status: Acute (2) Near syncope Status: Acute - Assessment and Plan (Free Text) Assessment: Patient is a 29 year old female with no significant past medical history who presented to the emergency department for evaluation and treatment of palpitations. Patient currently on telemetry floor for further medical evaluation and treatment. Plan: Palpitations - EKG on admission reviewed and appreciated- sinus tachycardia with intermittent PVCs vs fusion complxes HR 118, QTc 437 - Further monitoring shows elevated HR, SVT, sinus tachycardia, continued mobitz type II picture - Cardiology consulted Dr. Massey consulted, appreciate recs - TSH, HgA1c, urine C&S follow up, US of abdomen r/o pyelonephritis - Verapamil 2.5mg Q6H PRN, digoxin 0.25mg, propranolol 20 TID - EPS study on hold at this time - Echo: no significatn structural heart disease, normal chamber size, EF - 60-65 %, trace MR, TR - TSH, T3, T4 wnl UTI - greater than 2/4 SIRS criteria met in setting of infectious source (elevated white count and tachycardic) - UA positive for leukocyte esterase, nitrates, and urine bacteria - blood cultures x 2 negative to date - urine culture growing e.coli - IVF NS @ 100 after bolus - Tylenol prn pain and fever - ID on board, Dr. Aquino - Meropenem Anemia - Iron panel showing low % sat and iron - VB12, Folate wnl - Peripheral smear pending Elevated LFTs - improved - avoid hepatotoxins - hepatits panel negative - HIV negative Prophylaxis - DVT ppx- subq heparin refused by patient, on SCDS - GI ppx- famotidine Patient case discussed with and plan approved by attending physician
--- NOTE | 2017-05-10 16:38 | CP.PCM.PN ---
Subjective - Date & Time of Evaluation Date of Evaluation: 05/10/17 Time of Evaluation: 14:00 - Subjective Subjective: Infectious Disease Follow Up: May 10, 2017 Patient is a 31 year old female with no significant past medical history who presents to the emergency department for evaluation and treatment of palpitations. Patient states she began experiencing palpitations yesterday morning while at work with no provoking event. This is the first occurrence of such symptoms. 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 She put herself on tele monitor and noticed her HR was elevated. Admits to localized retrosternal chest tightness when the palpitations are occurring with associated lightheadedness. Denies recent travel and sick contacts. Patient denies intractable headache, fever, chills, dizziness, shortness of breath, abdominal pain, nausea, vomiting, diarrhea, constipation, and urinary symptoms. Patient had relatively low blood pressures. Tachycardic. E. coli in urine cultures that is highly sensitive. No evidence of pylonephritis. Objective - Vital Signs/Intake and Output Vital Signs (last 24 hours): Temp Pulse Resp BP Pulse Ox 97.6 F 92 H 20 101/64 99 05/10/17 11:40 05/10/17 14:06 05/10/17 11:40 05/10/17 14:06 05/10/17 05:59 Intake and Output: 05/10/17 05/10/17 06:59 18:59 Intake Total 1860 Output Total 2825 Balance -965 - Medications Medications: Current Medications Acetaminophen (Tylenol 325mg Tab) 650 mg PO Q6H PRN PRN Reason: Fever >100.4 F Last Admin: 05/10/17 14:23 Dose: 650 mg Digoxin (Lanoxin) 0.25 mg PO 1400 [facility] Last Admin: 05/10/17 14:07 Dose: Not Given Famotidine (Pepcid) 20 mg PO DAILY [facility] Last Admin: 05/10/17 09:37 Dose: 20 mg Heparin Sodium (Porcine) (Heparin) 5,000 units SC Q8 [facility] PRN Reason: Protocol Last Admin: 05/10/17 14:07 Dose: Not Given Sodium Chloride (Sodium Chloride 0.9%) 1,000 mls @ 100 mls/hr IV .Q10H [facility] Last Admin: 05/10/17 15:32 Dose: 100 mls/hr Meropenem 500 mg/ Sodium (Chloride) 100 mls @ 100 mls/hr IVPB Q8 [facility] PRN Reason: Protocol Last Admin: 05/10/17 14:07 Dose: 100 mls/hr Magnesium Oxide (Mag-Ox) 400 mg PO BID [facility] Last Admin: 05/10/17 09:37 Dose: 400 mg Propranolol HCl (Inderal) 20 mg PO TID [facility] Last Admin: 05/10/17 14:06 Dose: 20 mg Verapamil HCl (Verapamil Inj) 2.5 mg IVP Q6H PRN PRN Reason: for Heart rate >130 Last Admin: 05/10/17 09:46 Dose: 2.5 mg - Labs Labs: 05/10/17 06:00 05/10/17 06:00 - Constitutional Appears: Non-toxic, No Acute Distress - Head Exam Head Exam: ATRAUMATIC, NORMOCEPHALIC - Eye Exam Eye Exam: EOMI, PERRL Pupil Exam: NORMAL ACCOMODATION, PERRL - ENT Exam ENT Exam: Mucous Membranes Moist, Normal External Ear Exam, TM's Normal Bilaterally - Neck Exam Neck Exam: Full ROM, Normal Inspection - Respiratory Exam Respiratory Exam: Clear to Ausculation Bilateral, NORMAL BREATHING PATTERN. absent: Rales, Rhonchi, Wheezes - Cardiovascular Exam Cardiovascular Exam: Tachycardia, +S1, +S2 - GI/Abdominal Exam GI & Abdominal Exam: Soft, Normal Bowel Sounds. absent: Distended, Tenderness - Extremities Exam Extremities Exam: Full ROM, Normal Inspection - Neurological Exam Neurological Exam: Alert, Awake, CN II-XII Intact, Oriented x3 - Psychiatric Exam Psychiatric exam: Normal Affect, Normal Mood - Skin Skin Exam: Intact, Normal Color Assessment and Plan - Assessment and Plan (Free Text) Assessment: 31 yo AA female with sudden onset of tachycardia. Urinalysis suggests UTI. Urine cultures pending. Started on IV Rocephin which is reasonable first choice. 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 As tachycardia is persisting, continuing meropenem at this point. No other medical history. Persistent tachycardia. Blood pressures on the low side. E.coli in the urine cultures. E. coli was sensitive to multiple antibiotics. Supportive care. Thank you for allowing me to participate in the care of the patient, we will follow with you.
--- NOTE | 2017-05-10 18:15 | CARD ---
APPROVED REPORT EKG Measurement Heart [id number] <Conclusion> Sinus tachycardia Otherwise normal ECG
[2017-05-11] MEDS: Sodium Chloride 0.9% 1,000 ML IV SCH ×3 (03:00→21:04)
[2017-05-11] MEDS: Meropenem 500 MG in Sodium Chloride 0.9% 100 ML IVPB SCH ×3 (06:22→22:27)
[2017-05-11 07:19] LABS: BASO # 0.01 K/mm3 (0.0-2.0); BASO % 0.1 % (0.0-3.0); EOS # 0.1 (0.0-0.7); EOS % 1.9 % (1.5-5.0); GRAN # 4.43 (1.4-6.5); GRAN % 59.7 % (50.0-68.0); LYMPH # 2.2 (1.2-3.4); LYMPH % 30.1 % (22.0-35.0); MEAN CELL VOLUME 84.4 fl (80.0-105.0); MEAN CORPUSCULAR HEMOGLOBIN 29.8 pg (25.0-35.0); MEAN CORPUSCULAR HGB CONC 35.3 g/dl (31.0-37.0); MEAN PLATELET VOLUME 10.5 fl (7.0-11.0); MONO # 0.6 (0.1-0.6); MONO % 8.2 % (1.0-6.0); WHITE BLOOD COUNT 7.4 10^3/ul (4.5-11.0)
[2017-05-11 07:48] LABS: BLOOD UREA NITROGEN 8 mg/dL (7-21); CARBON DIOXIDE 26 mmol/L (21-33); CHLORIDE 106 mmol/L (98-107); GFR AFRICAN-AMERICAN > 60; GLUCOSE,RANDOM 90 mg/dL (70-110); SODIUM 139 mmol/L (132-148)
[2017-05-11 07:49] LABS: ALB/GLOB RATIO 1.1 (1.1-1.8); ALKALINE PHOSPHATASE 58 U/L (38-126); ALT/SGPT 44 U/L (7-56); AST/SGOT 35 U/L (14-36); BILIRUBIN,TOTAL 0.6 mg/dL (0.2-1.3); CALCIUM 9.4 mg/dL (8.4-10.5); TOTAL PROTEIN 7.2 g/dL (5.8-8.3)
--- NOTE | 2017-05-11 08:51 | CP.PCM.PN ---
<Papito Figueroa - Last Filed: 05/11/17 12:10> Subjective - Date & Time of Evaluation Date of Evaluation: 05/11/17 Time of Evaluation: 07:00 - Subjective Subjective: Medicine progress note: Patient seen and examined on telemetry floor. No acute events overnight reported. Pt denies any episodes of palpitations, chest pain or sob. States that she is feeling much better. 12 point ROS performed and negative other than stated above. Objective - Vital Signs/Intake and Output Vital Signs (last 24 hours): Temp Pulse Resp BP Pulse Ox 97.8 F 92 H 20 94/68 L 100 05/11/17 05:56 05/11/17 05:56 05/11/17 05:56 05/11/17 05:56 05/11/17 05:56 Intake and Output: 05/11/17 05/11/17 06:59 18:59 Intake Total 680 Output Total 3000 Balance -2320 - Medications Medications: Current Medications Acetaminophen (Tylenol 325mg Tab) 650 mg PO Q6H PRN PRN Reason: Fever >100.4 F Last Admin: 05/10/17 20:41 Dose: 650 mg Digoxin (Lanoxin) 0.25 mg PO 1400 [facility] Last Admin: 05/10/17 14:07 Dose: Not Given Famotidine (Pepcid) 20 mg PO DAILY [facility] Last Admin: 05/10/17 09:37 Dose: 20 mg Heparin Sodium (Porcine) (Heparin) 5,000 units SC Q8 [facility] PRN Reason: Protocol Last Admin: 05/11/17 05:35 Dose: Not Given Sodium Chloride (Sodium Chloride 0.9%) 1,000 mls @ 100 mls/hr IV .Q10H [facility] Last Admin: 05/11/17 03:00 Dose: Not Given Meropenem 500 mg/ Sodium (Chloride) 100 mls @ 100 mls/hr IVPB Q8 [facility] PRN Reason: Protocol Last Admin: 05/11/17 06:22 Dose: 100 mls/hr Magnesium Oxide (Mag-Ox) 400 mg PO BID [facility] Last Admin: 05/10/17 18:11 Dose: Not Given Propranolol HCl (Inderal) 20 mg PO TID [facility] Last Admin: 05/10/17 18:11 Dose: 20 mg Verapamil HCl (Verapamil Inj) 2.5 mg IVP Q6H PRN PRN Reason: for Heart rate >130 Last Admin: 05/10/17 09:46 Dose: 2.5 mg - Labs Labs: 05/11/17 07:00 05/11/17 07:00 - Constitutional Appears: No Acute Distress - Head Exam Head Exam: ATRAUMATIC, NORMOCEPHALIC - Eye Exam Eye Exam: EOMI, PERRL - ENT Exam ENT Exam: Mucous Membranes Moist - Respiratory Exam Respiratory Exam: Clear to Ausculation Bilateral. absent: Rales, Wheezes - Cardiovascular Exam Cardiovascular Exam: REGULAR RHYTHM, +S1, +S2 - GI/Abdominal Exam GI & Abdominal Exam: Soft. absent: Tenderness - Extremities Exam Extremities Exam: absent: Calf Tenderness, Pedal Edema - Neurological Exam Neurological Exam: Alert, Awake, Oriented x3 - Psychiatric Exam Psychiatric exam: Normal Affect, Normal Mood - Skin Skin Exam: Dry, Intact, Warm Assessment and Plan (1) Tachycardia Status: Acute - Assessment and Plan (Free Text) Assessment: 29 year old female with no significant past medical history who presents with palpitations found to have recurrent SVT, blocked APCs, and UTI. 1. Palpitations 2/2 recurrent SVT, blocked APCs - Cardiology consulted Dr. Massey consulted, appreciate recs - Verapamil 2.5mg Q6H PRN, digoxin 0.25mg, propranolol 20 TID - Possible transfer to [facility] for Ablation on Saturday - Echo: no significatn structural heart disease, normal chamber size, EF - 60-65 %, trace MR, TR - TSH, T3, T4 wnl 2. UTI - greater than 2/4 SIRS criteria met in setting of infectious source (elevated white count and tachycardic) - UA positive for leukocyte esterase, nitrates, and urine bacteria - blood cultures x 2 negative to date - urine culture growing e.coli - IVF NS @ 100 after bolus - Tylenol prn pain and fever - ID on board, Dr. Aquino - Meropenem 3. Anemia - resolved - Iron panel showing low % sat and iron - VB12, Folate wnl - Peripheral smear pending 4. Elevated LFTs - improved - avoid hepatotoxins - hepatits panel negative - HIV negative 5. Prophylaxis - DVT ppx - SCDS, ambulating - GI ppx- famotidine Patient case discussed with and plan approved by attending physician <Curtis Elder - Last Filed: 05/11/17 12:19> Objective - Vital Signs/Intake and Output Vital Signs (last 24 hours): Temp Pulse Resp BP Pulse Ox 98.6 F 98 H 18 133/73 99 05/11/17 08:00 05/11/17 10:00 05/11/17 08:00 05/11/17 09:12 05/11/17 08:00 Intake and Output: 05/11/17 05/11/17 06:59 18:59 Intake Total 680 200 Output Total 3000 Balance -2320 200 - Medications Medications: Current Medications Acetaminophen (Tylenol 325mg Tab) 650 mg PO Q6H PRN PRN Reason: Fever >100.4 F Last Admin: 05/11/17 09:45 Dose: 650 mg Digoxin (Lanoxin) 0.25 mg PO 1400 [facility] Last Admin: 05/10/17 14:07 Dose: Not Given Famotidine (Pepcid) 20 mg PO DAILY [facility] Last Admin: 05/11/17 09:12 Dose: 20 mg Heparin Sodium (Porcine) (Heparin) 5,000 units SC Q8 [facility] PRN Reason: Protocol Last Admin: 05/11/17 05:35 Dose: Not Given Sodium Chloride (Sodium Chloride 0.9%) 1,000 mls @ 100 mls/hr IV .Q10H [facility] Last Admin: 05/11/17 03:00 Dose: Not Given Meropenem 500 mg/ Sodium (Chloride) 100 mls @ 100 mls/hr IVPB Q8 [facility] PRN Reason: Protocol Last Admin: 05/11/17 06:22 Dose: 100 mls/hr Magnesium Oxide (Mag-Ox) 400 mg PO BID [facility] Last Admin: 05/11/17 09:13 Dose: 400 mg Propranolol HCl (Inderal) 20 mg PO TID [facility] Last Admin: 05/11/17 09:12 Dose: 20 mg Verapamil HCl (Verapamil Inj) 2.5 mg IVP Q6H [facility] PRN Reason: for Heart rate >130 Last Admin: 05/10/17 09:46 Dose: 2.5 mg - Labs Labs: 05/11/17 07:00 05/11/17 07:00 Assessment and Plan - Assessment and Plan (Free Text) Plan: discussed w/ resident at length went over labs meds tests plans orders reviewed
[2017-05-11] MEDS: Magnesium Oxide 400 mg Tab UD PO SCH ×2 (09:13→17:34)
[2017-05-11] MEDS: Digoxin 250 mcg (0.25 mg) Tab PO SCH (14:15)
--- NOTE | 2017-05-11 16:33 | CP.PCM.PN ---
Subjective - Date & Time of Evaluation Date of Evaluation: 05/11/17 Time of Evaluation: 15:00 - Subjective Subjective: Infectious Disease Follow Up: May 11, 2017 Patient is a 31 year old female with no significant past medical history who presents to the emergency department for evaluation and treatment of palpitations. Patient states she began experiencing palpitations yesterday morning while at work with no provoking event. This is the first occurrence of such symptoms. 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 Admits to localized retrosternal chest tightness when the palpitations are occurring with associated lightheadedness. Denies recent travel and sick contacts. Patient denies intractable headache, fever, chills, dizziness, shortness of breath, abdominal pain, nausea, vomiting, diarrhea, constipation, and urinary symptoms. Patient had relatively low blood pressures. Tachycardic. E. coli in urine cultures that is highly sensitive. No evidence of pylonephritis. Feeling better now. Objective - Vital Signs/Intake and Output Vital Signs (last 24 hours): Temp Pulse Resp BP Pulse Ox 97.8 F 95 H 16 102/73 99 05/11/17 12:00 05/11/17 14:12 05/11/17 12:00 05/11/17 14:12 05/11/17 08:00 Intake and Output: 05/11/17 05/11/17 06:59 18:59 Intake Total 680 200 Output Total 3000 Balance -2320 200 - Medications Medications: Current Medications Acetaminophen (Tylenol 325mg Tab) 650 mg PO Q6H PRN PRN Reason: Fever >100.4 F Last Admin: 05/11/17 09:45 Dose: 650 mg Digoxin (Lanoxin) 0.25 mg PO 1400 [facility] Last Admin: 05/11/17 14:15 Dose: Not Given Famotidine (Pepcid) 20 mg PO DAILY [facility] Last Admin: 05/11/17 09:12 Dose: 20 mg Heparin Sodium (Porcine) (Heparin) 5,000 units SC Q8 [facility] PRN Reason: Protocol Last Admin: 05/11/17 05:35 Dose: Not Given Sodium Chloride (Sodium Chloride 0.9%) 1,000 mls @ 100 mls/hr IV .Q10H [facility] Last Admin: 05/11/17 03:00 Dose: Not Given Meropenem 500 mg/ Sodium (Chloride) 100 mls @ 100 mls/hr IVPB Q8 [facility] PRN Reason: Protocol Last Admin: 05/11/17 14:14 Dose: 100 mls/hr Magnesium Oxide (Mag-Ox) 400 mg PO BID [facility] Last Admin: 05/11/17 09:13 Dose: 400 mg Propranolol HCl (Inderal) 20 mg PO TID [facility] Last Admin: 05/11/17 14:12 Dose: 20 mg Verapamil HCl (Verapamil Inj) 2.5 mg IVP Q6H PRN PRN Reason: for Heart rate >130 Last Admin: 05/10/17 09:46 Dose: 2.5 mg - Labs Labs: 05/11/17 07:00 05/11/17 07:00 - Constitutional Appears: Non-toxic, No Acute Distress, Chronically Ill - Head Exam Head Exam: ATRAUMATIC, NORMOCEPHALIC - Eye Exam Eye Exam: EOMI, PERRL Pupil Exam: NORMAL ACCOMODATION, PERRL - ENT Exam ENT Exam: Mucous Membranes Moist, Normal External Ear Exam, TM's Normal Bilaterally - Neck Exam Neck Exam: Full ROM, Normal Inspection - Respiratory Exam Respiratory Exam: Clear to Ausculation Bilateral, NORMAL BREATHING PATTERN. absent: Rales, Rhonchi, Wheezes - Cardiovascular Exam Cardiovascular Exam: Tachycardia, +S1, +S2 Additional comments: less tachycardia than yesterday. - GI/Abdominal Exam GI & Abdominal Exam: Soft, Normal Bowel Sounds. absent: Distended, Tenderness - Extremities Exam Extremities Exam: Full ROM, Normal Inspection - Neurological Exam Neurological Exam: Alert, Awake, CN II-XII Intact, Oriented x3 - Psychiatric Exam Psychiatric exam: Normal Affect, Normal Mood - Skin Skin Exam: Intact, Normal Color Assessment and Plan - Assessment and Plan (Free Text) Assessment: 31 yo AA female with sudden onset of tachycardia. Urinalysis suggests UTI. Urine cultures pending. Started on IV Rocephin which is reasonable first choice. 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 As tachycardia is persisting, continuing meropenem at this point. No other medical history. Persistent tachycardia. Blood pressures on the low side. E.coli in the urine cultures. E. coli was sensitive to multiple antibiotics. Will consider change to oral medications or Keflex tomorrow for 3- 4 more days. Supportive care. Thank you for allowing me to participate in the care of the patient, we will follow with you.
--- NOTE | 2017-05-11 22:57 | PN ---
DATE: 05/11/2017 LOCATION: The patient is in room 275, bed 2. REASON FOR CONSULTATION AND FOLLOWUP: Dizziness, chest pain, SVT, recurrent times. SUBJECTIVE: The patient is sitting in bed without any chest pain or shortness of breath. The patient states that she is getting short episodes of palpitation. PHYSICAL EXAMINATION: VITAL SIGNS: Blood pressure 115/66, respirations 19, pulse 86, and temperature 98.1. HEENT: Head is normocephalic. Eyes; pupils are normal. Conjunctivae normal. Nose and throat normal. NECK: JVP is low. Carotids are equal. THORAX: AP diameter normal. LUNGS: Clear. CARDIOVASCULAR: S1 and S2. ABDOMEN: Soft and nontender. No organomegaly. Bowel sounds normal. EXTREMITIES: No clubbing. No cyanosis. LABORATORY DATA: WBC 7.4, hemoglobin 12.0, hematocrit 34.0, and platelets 238. Sodium 139, potassium 4.0, BUN 8, creatinine 0.7, sugar 90. AST and ALT normal. Total protein and albumin normal. Monitor showed very short runs of 3 to 5 fast beats in a row which has premature APCs. DIAGNOSIS: Recurrent supraventricular tachycardia. PLAN: The patient's echo is normal. The patient is on heparin 5000 units subcu q. 8 hours, propranolol 20 t.i.d., digoxin 0.25 daily, Merrem 500 mg IV q. 8 hours, IV fluid therapy. The patient has been scheduled for ablation and she will be going to [facility] with Dr. Dasilva, hot water heater installer for ablation. In the meantime, we will continue present therapy. Continue to monitor her closely. Brent Lozano MD
[2017-05-12] MEDS: Meropenem 500 MG in Sodium Chloride 0.9% 100 ML IVPB SCH ×3 (05:45→22:43)
[2017-05-12 07:02] LABS: BASO # 0.01 K/mm3 (0.0-2.0); BASO % 0.1 % (0.0-3.0); EOS # 0.1 (0.0-0.7); EOS % 1.9 % (1.5-5.0); GRAN # 3.68 (1.4-6.5); GRAN % 53.5 % (50.0-68.0); HEMATOCRIT 32.5 % (36.0-48.0); LYMPH # 2.5 (1.2-3.4); LYMPH % 36.4 % (22.0-35.0); MEAN CELL VOLUME 83.5 fl (80.0-105.0); MEAN CORPUSCULAR HEMOGLOBIN 29.6 pg (25.0-35.0); MEAN CORPUSCULAR HGB CONC 35.4 g/dl (31.0-37.0); MEAN PLATELET VOLUME 10.3 fl (7.0-11.0); MONO # 0.6 (0.1-0.6); MONO % 8.1 % (1.0-6.0); WHITE BLOOD COUNT 6.9 10^3/ul (4.5-11.0)
[2017-05-12 08:15] LABS: ALB/GLOB RATIO 1.1 (1.1-1.8); ALKALINE PHOSPHATASE 57 U/L (38-126); ALT/SGPT 50 U/L (7-56); AST/SGOT 37 U/L (14-36); BILIRUBIN,TOTAL 0.6 mg/dL (0.2-1.3); BLOOD UREA NITROGEN 11 mg/dL (7-21); CALCIUM 9.3 mg/dL (8.4-10.5); CARBON DIOXIDE 24 mmol/L (21-33); CHLORIDE 105 mmol/L (98-107); GFR AFRICAN-AMERICAN > 60; GLUCOSE,RANDOM 89 mg/dL (70-110); POTASSIUM 3.8 mmol/L (3.6-5.0); SODIUM 138 mmol/L (132-148)
[2017-05-12] MEDS: Sodium Chloride 0.9% 1,000 ML IV SCH ×2 (08:29→18:00)
--- NOTE | 2017-05-12 08:55 | CP.PCM.PN ---
<Papito Figueroa - Last Filed: 05/12/17 08:50> Subjective - Date & Time of Evaluation Date of Evaluation: 05/12/17 Time of Evaluation: 07:00 - Subjective Subjective: Medicine progress note: Patient seen and examined. No acute events overnight. Pt states that she had 1 episode of palpitations yesterday but she denies any chest pain or sob. States that she is feeling much better overall/ 12 point ROS performed and negative other than stated above. Objective - Vital Signs/Intake and Output Vital Signs (last 24 hours): Temp Pulse Resp BP Pulse Ox 97.9 F 104 H 20 82/48 L 99 05/12/17 06:00 05/12/17 06:00 05/12/17 06:00 05/12/17 06:00 05/12/17 06:00 Intake and Output: 05/12/17 05/12/17 06:59 18:59 Intake Total 1160 Output Total 1900 Balance -740 - Medications Medications: Current Medications Acetaminophen (Tylenol 325mg Tab) 650 mg PO Q6H PRN PRN Reason: Fever >100.4 F Last Admin: 05/11/17 09:45 Dose: 650 mg Digoxin (Lanoxin) 0.25 mg PO 1400 [facility] Last Admin: 05/11/17 14:15 Dose: Not Given Famotidine (Pepcid) 20 mg PO DAILY [facility] Last Admin: 05/11/17 09:12 Dose: 20 mg Heparin Sodium (Porcine) (Heparin) 5,000 units SC Q8 [facility] PRN Reason: Protocol Last Admin: 05/12/17 05:23 Dose: Not Given Sodium Chloride (Sodium Chloride 0.9%) 1,000 mls @ 100 mls/hr IV .Q10H [facility] Last Admin: 05/12/17 08:29 Dose: Not Given Meropenem 500 mg/ Sodium (Chloride) 100 mls @ 100 mls/hr IVPB Q8 [facility] PRN Reason: Protocol Last Admin: 05/12/17 05:45 Dose: 100 mls/hr Magnesium Oxide (Mag-Ox) 400 mg PO BID [facility] Last Admin: 05/11/17 17:34 Dose: 400 mg Propranolol HCl (Inderal) 20 mg PO TID [facility] Last Admin: 05/12/17 00:53 Dose: 20 mg Verapamil HCl (Verapamil Inj) 2.5 mg IVP Q6H PRN PRN Reason: for Heart rate >130 Last Admin: 05/10/17 09:46 Dose: 2.5 mg - Labs Labs: 05/12/17 06:45 05/12/17 06:45 - Constitutional Appears: No Acute Distress - Head Exam Head Exam: ATRAUMATIC, NORMOCEPHALIC - Eye Exam Eye Exam: EOMI, PERRL Pupil Exam: PERRL - ENT Exam ENT Exam: Mucous Membranes Moist - Neck Exam Neck Exam: Full ROM - Respiratory Exam Respiratory Exam: Clear to Ausculation Bilateral. absent: Rales, Wheezes - Cardiovascular Exam Cardiovascular Exam: REGULAR RHYTHM, RRR, +S1, +S2 - GI/Abdominal Exam GI & Abdominal Exam: Soft, Normal Bowel Sounds. absent: Tenderness - Neurological Exam Neurological Exam: Alert, Awake, Normal Gait, Oriented x3 - Psychiatric Exam Psychiatric exam: Normal Affect, Normal Mood - Skin Skin Exam: Dry, Intact, Warm Assessment and Plan (1) Tachycardia Status: Acute - Assessment and Plan (Free Text) Assessment: 29 year old female with no significant past medical history who presents with palpitations found to have recurrent SVT, blocked APCs, and UTI. 1. Palpitations 2/2 recurrent SVT, blocked APCs - Cardiology consulted Dr. Massey consulted, appreciate recs - digoxin 0.25mg, propranolol 20 TID, Verapamil 2.5mg Q6H PRN, - Possible transfer to [facility] for Ablation on Saturday - Echo: no significatn structural heart disease, normal chamber size, EF - 60-65 %, trace MR, TR - TSH, T3, T4 wnl 2. UTI - greater than 2/4 SIRS criteria met in setting of infectious source (elevated white count and tachycardic) - urine culture growing e.coli - Tylenol prn pain and fever - ID on board, Dr. Aquino - continue Meropenem 3. Anemia - resolved - Iron panel showing low % sat and iron - VB12, Folate wnl - Peripheral smear pending 4. Elevated LFTs - improved - avoid hepatotoxins - hepatits panel negative - HIV negative 5. Prophylaxis - DVT ppx - SCDS, ambulating - GI ppx- famotidine Patient case discussed with and plan approved by attending physician <Curtis Elder - Last Filed: 05/12/17 11:04> Objective - Vital Signs/Intake and Output Vital Signs (last 24 hours): Temp Pulse Resp BP Pulse Ox 97.9 F 91 H 20 98/57 L 99 05/12/17 06:00 05/12/17 10:00 05/12/17 06:00 05/12/17 09:06 05/12/17 06:00 Intake and Output: 05/12/17 05/12/17 06:59 18:59 Intake Total 1160 Output Total 1900 Balance -740 - Medications Medications: Current Medications Acetaminophen (Tylenol 325mg Tab) 650 mg PO Q6H PRN PRN Reason: Fever >100.4 F Last Admin: 05/11/17 09:45 Dose: 650 mg Digoxin (Lanoxin) 0.25 mg PO 1400 [facility] Last Admin: 05/11/17 14:15 Dose: Not Given Famotidine (Pepcid) 20 mg PO DAILY [facility] Last Admin: 05/12/17 09:06 Dose: 20 mg Heparin Sodium (Porcine) (Heparin) 5,000 units SC Q8 [facility] PRN Reason: Protocol Last Admin: 05/12/17 05:23 Dose: Not Given Sodium Chloride (Sodium Chloride 0.9%) 1,000 mls @ 100 mls/hr IV .Q10H [facility] Last Admin: 05/12/17 08:29 Dose: Not Given Meropenem 500 mg/ Sodium (Chloride) 100 mls @ 100 mls/hr IVPB Q8 [facility] PRN Reason: Protocol Last Admin: 05/12/17 05:45 Dose: 100 mls/hr Magnesium Oxide (Mag-Ox) 400 mg PO BID [facility] Last Admin: 05/12/17 09:06 Dose: 400 mg Propranolol HCl (Inderal) 20 mg PO TID [facility] Last Admin: 05/12/17 09:06 Dose: 20 mg Verapamil HCl (Verapamil Inj) 2.5 mg IVP Q6H PRN PRN Reason: for Heart rate >130 Last Admin: 05/10/17 09:46 Dose: 2.5 mg - Labs Labs: 05/12/17 06:45 05/12/17 06:45 Assessment and Plan - Assessment and Plan (Free Text) Plan: discussed w/ resident at length went over labs xrays tests meds orders consults plans reviewed
[2017-05-12] MEDS: Magnesium Oxide 400 mg Tab UD PO SCH ×2 (09:06→17:20)
[2017-05-12] MEDS: Digoxin 250 mcg (0.25 mg) Tab PO SCH (14:04)
--- NOTE | 2017-05-12 17:55 | CP.PCM.PN ---
Subjective - Date & Time of Evaluation Date of Evaluation: 05/12/17 Time of Evaluation: 15:45 - Subjective Subjective: Infectious Disease Follow Up: May 12, 2017 Patient is a 31 year old female with no significant past medical history who presents to the emergency department for evaluation and treatment of palpitations. Patient states she began experiencing palpitations yesterday morning while at work with no provoking event. This is the first occurrence of such symptoms. 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 She put herself on tele monitor and noticed her HR was elevated. Admits to localized retrosternal chest tightness when the palpitations are occurring with associated lightheadedness. Denies recent travel and sick contacts. Patient denies intractable headache, fever, chills, dizziness, shortness of breath, abdominal pain, nausea, vomiting, diarrhea, constipation, and urinary symptoms. Patient had relatively low blood pressures. Tachycardic. E. coli in urine cultures that is highly sensitive. No evidence of pylonephritis. Feeling better now. For transfer for ablation therapy. Objective - Vital Signs/Intake and Output Vital Signs (last 24 hours): Temp Pulse Resp BP Pulse Ox 97.9 F 72 16 124/76 99 05/12/17 12:00 05/12/17 17:19 05/12/17 12:00 05/12/17 17:19 05/12/17 06:00 Intake and Output: 05/12/17 05/12/17 06:59 18:59 Intake Total 1160 Output Total 1900 Balance -740 - Medications Medications: Current Medications Acetaminophen (Tylenol 325mg Tab) 650 mg PO Q6H PRN PRN Reason: Fever >100.4 F Last Admin: 05/11/17 09:45 Dose: 650 mg Digoxin (Lanoxin) 0.25 mg PO 1400 [facility] Last Admin: 05/12/17 14:04 Dose: Not Given Famotidine (Pepcid) 20 mg PO DAILY [facility] Last Admin: 05/12/17 09:06 Dose: 20 mg Heparin Sodium (Porcine) (Heparin) 5,000 units SC Q8 [facility] PRN Reason: Protocol Last Admin: 05/12/17 14:04 Dose: Not Given Sodium Chloride (Sodium Chloride 0.9%) 1,000 mls @ 100 mls/hr IV .Q10H [facility] Last Admin: 05/12/17 08:29 Dose: Not Given Meropenem 500 mg/ Sodium (Chloride) 100 mls @ 100 mls/hr IVPB Q8 [facility] PRN Reason: Protocol Last Admin: 05/12/17 13:57 Dose: 100 mls/hr Magnesium Oxide (Mag-Ox) 400 mg PO BID [facility] Last Admin: 05/12/17 17:20 Dose: 400 mg Propranolol HCl (Inderal) 20 mg PO TID [facility] Last Admin: 05/12/17 17:19 Dose: 20 mg Verapamil HCl (Verapamil Inj) 2.5 mg IVP Q6H PRN PRN Reason: for Heart rate >130 Last Admin: 05/10/17 09:46 Dose: 2.5 mg - Labs Labs: 05/12/17 06:45 05/12/17 06:45 - Constitutional Appears: Non-toxic, No Acute Distress, Chronically Ill - Head Exam Head Exam: ATRAUMATIC, NORMOCEPHALIC - Eye Exam Eye Exam: EOMI, PERRL Pupil Exam: NORMAL ACCOMODATION, PERRL - ENT Exam ENT Exam: Mucous Membranes Moist, Normal External Ear Exam, TM's Normal Bilaterally - Neck Exam Neck Exam: Full ROM, Normal Inspection - Respiratory Exam Respiratory Exam: Clear to Ausculation Bilateral, NORMAL BREATHING PATTERN. absent: Rales, Rhonchi, Wheezes - Cardiovascular Exam Cardiovascular Exam: Tachycardia, +S1, +S2 - GI/Abdominal Exam GI & Abdominal Exam: Soft, Normal Bowel Sounds. absent: Distended, Tenderness - Extremities Exam Extremities Exam: Full ROM, Normal Inspection - Neurological Exam Neurological Exam: Alert, Awake, CN II-XII Intact, Oriented x3 - Psychiatric Exam Psychiatric exam: Normal Affect, Normal Mood - Skin Skin Exam: Intact, Normal Color Assessment and Plan - Assessment and Plan (Free Text) Assessment: 31 yo AA female with sudden onset of tachycardia. Urinalysis suggests UTI. Urine cultures pending. Started on IV Rocephin which is reasonable first choice. 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 As tachycardia is persisting, continuing meropenem at this point. No other medical history. Persistent tachycardia. Blood pressures on the low side. E.coli in the urine cultures. E. coli was sensitive to multiple antibiotics. Will stop meropenem and convert to oral medication Keflex tomorrow for 3-4 more days. Supportive care. Thank you for allowing me to participate in the care of the patient, we will follow with you.
--- NOTE | 2017-05-12 23:02 | PN ---
DATE: 05/12/2017 LOCATION: The patient is in room 275, bed 2. REASON FOR CONSULTATION AND FOLLOWUP: Dizziness, chest pain and SVT, recurrent. SUBJECTIVE: The patient denies any chest pain, shortness of breath or palpitation. PHYSICAL EXAMINATION: VITAL SIGNS: Blood pressure of 124/76, respirations of 16, pulse of 72, earlier she had a pulse of 120 and 105, and temperature of 97.9. HEENT: Head is normocephalic. Eyes; pupils are normal. Conjunctivae are normal. NECK: JVP is low. Carotids are equal. THORAX: AP diameter normal. LUNGS: Clear. CARDIOVASCULAR: S1 and S2. ABDOMEN: Soft and no tenderness. No organomegaly. Bowel sounds normal. EXTREMITIES: No clubbing. No cyanosis. LABORATORY DATA: WBC of 6.9, hemoglobin of 11.5, hematocrit of 32.5, and platelets of 231. Sodium of 138, potassium of 3.8, BUN of 11, creatinine of 0.6, carbon dioxide is 24. and calcium is 9.3. Total protein and albumin are normal. TSH and free T4 are normal. DIAGNOSIS: Recurrent supraventricular tachycardia. PLAN: The patient already had echocardiogram which was normal. The patient is on digoxin 0.25 daily, propranolol 20 mg t.i.d., and heparin 5000 units subcutaneous q. 8 hours. The patient will be transferred to [facility] for ablation of recurrent supraventricular tachycardia. In the mean time, we will continue present therapy. Brent Lozano MD
[2017-05-13 06:01] LABS: BASO # 0.02 K/mm3 (0.0-2.0); BASO % 0.2 % (0.0-3.0); EOS # 0.1 (0.0-0.7); EOS % 1.5 % (1.5-5.0); GRAN # 4.63 (1.4-6.5); GRAN % 55.1 % (50.0-68.0); HEMATOCRIT 33.1 % (36.0-48.0); LYMPH # 3.1 (1.2-3.4); LYMPH % 36.3 % (22.0-35.0); MEAN CELL VOLUME 83.4 fl (80.0-105.0); MEAN CORPUSCULAR HEMOGLOBIN 29.5 pg (25.0-35.0); MEAN CORPUSCULAR HGB CONC 35.3 g/dl (31.0-37.0); MEAN PLATELET VOLUME 10.3 fl (7.0-11.0); MONO # 0.6 (0.1-0.6); MONO % 6.9 % (1.0-6.0); RED CELL DISTRIBUTION WIDTH 12.9 % (11.5-14.5); WHITE BLOOD COUNT 8.4 10^3/ul (4.5-11.0)
[2017-05-13 06:37] LABS: ALB/GLOB RATIO 1.2 (1.1-1.8); ALKALINE PHOSPHATASE 57 U/L (38-126); ALT/SGPT 54 U/L (7-56); AST/SGOT 41 U/L (14-36); BILIRUBIN,TOTAL 0.5 mg/dL (0.2-1.3); BLOOD UREA NITROGEN 12 mg/dL (7-21); CALCIUM 9.6 mg/dL (8.4-10.5); CARBON DIOXIDE 25 mmol/L (21-33); CHLORIDE 106 mmol/L (98-107); GFR AFRICAN-AMERICAN > 60; GLUCOSE,RANDOM 93 mg/dL (70-110); POTASSIUM 3.9 mmol/L (3.6-5.0); SODIUM 140 mmol/L (132-148); TOTAL PROTEIN 7.1 g/dL (5.8-8.3)
[2017-05-13] MEDS: Meropenem 500 MG in Sodium Chloride 0.9% 100 ML IVPB SCH (06:56)
[2017-05-13 07:57] VITALS: BP 93/70; RESP 20; TEMP 97.8; O2SAT 97
[2017-05-13 10:51] VITALS: PULSE 66
[2017-05-13] MEDS: Magnesium Oxide 400 mg Tab UD PO SCH (10:51)
--- NOTE | 2017-05-13 11:24 | CP.PCM.DIS ---
Provider - Provider Date of Admission: 05/08/17 13:57 Attending physician: Cisco Wynn MD Primary care physician: NO PRIMARY CARE PROVIDER Time Spent in preparation of Discharge (in minutes): 40 Hospital Course - Lab Results Lab Results: Most Recent Lab Values WBC 8.4 10^3/ul (4.5-11.0) D 05/13/17 05:15 RBC 3.97 10^6/uL (3.5-6.1) 05/13/17 05:15 Hgb 11.7 g/dL (12.0-16.0) L 05/13/17 05:15 Hct 33.1 % (36.0-48.0) L 05/13/17 05:15 MCV 83.4 fl (80.0-105.0) 05/13/17 05:15 MCH 29.5 pg (25.0-35.0) 05/13/17 05:15 MCHC 35.3 g/dl (31.0-37.0) 05/13/17 05:15 RDW 12.9 % (11.5-14.5) 05/13/17 05:15 Plt Count 256 10^3/uL (120.0-450.0) 05/13/17 05:15 MPV 10.3 fl (7.0-11.0) 05/13/17 05:15 Gran % 55.1 % (50.0-68.0) 05/13/17 05:15 Lymph % (Auto) 36.3 % (22.0-35.0) H 05/13/17 05:15 [place] % (Auto) 6.9 % (1.0-6.0) H 05/13/17 05:15 Eos % (Auto) 1.5 % (1.5-5.0) 05/13/17 05:15 Baso % (Auto) 0.2 % (0.0-3.0) 05/13/17 05:15 Gran # 4.63 (1.4-6.5) 05/13/17 05:15 Lymph # 3.1 (1.2-3.4) 05/13/17 05:15 [place] # 0.6 (0.1-0.6) 05/13/17 05:15 Eos # 0.1 (0.0-0.7) 05/13/17 05:15 Baso # 0.02 K/mm3 (0.0-2.0) 05/13/17 05:15 ESR 8 mm/hr (0.0-20.0) 05/08/17 06:00 pO2 45 mm/Hg (30-55) 05/08/17 02:15 VBG pH 7.35 (7.32-7.43) 05/08/17 02:15 VBG pCO2 52.0 (40-60) 05/08/17 02:15 VBG HCO3 28.7 mmol/l (21-28) H 05/08/17 02:15 VBG Total CO2 30.3 mmol.L (22-28) H 05/08/17 02:15 VBG O2 Sat (Calc) 81.8 % (40-65) H 05/08/17 02:15 VBG Base Excess 2.1 mmol/L (0.0-2.0) H 05/08/17 02:15 VBG Potassium 3.6 mmol/L (3.6-5.2) 05/08/17 02:15 Sodium 141.0 mmol/L (132-148) 05/08/17 02:15 Chloride 107.0 mmol/L (98-107) 05/08/17 02:15 Glucose 99 mg/dl (65-105) 05/08/17 02:15 Lactate 1.3 mmol/L (0.7-2.1) 05/08/17 02:15 FiO2 21.0 % 05/08/17 02:15 Sodium 140 mmol/L (132-148) 05/13/17 05:15 Potassium 3.9 mmol/L (3.6-5.0) 05/13/17 05:15 Chloride 106 mmol/L (98-107) 05/13/17 05:15 Carbon Dioxide 25 mmol/L (21-33) 05/13/17 05:15 Anion Gap 14 (10-20) 05/13/17 05:15 BUN 12 mg/dL (7-21) 05/13/17 05:15 Creatinine 0.6 mg/dl (0.7-1.2) L 05/13/17 05:15 Est GFR ( Amer) > 60 05/13/17 05:15 Est GFR (Non-Af Amer) > 60 05/13/17 05:15 POC Glucose (mg/dL) 101 mg/dL (65-110) 05/08/17 12:17 Random Glucose 93 mg/dL (70-110) 05/13/17 05:15 Hemoglobin A1c 4.2 % (4.2-6.5) 05/08/17 02:15 Calcium 9.6 mg/dL (8.4-10.5) 05/13/17 05:15 Phosphorus 2.5 mg/dL (2.5-4.5) 05/09/17 06:30 Magnesium 1.7 mg/dL (1.7-2.2) 05/09/17 06:30 Iron 22 ug/dL (45-180) L 05/08/17 07:00 TIBC 289 ug/dL (265-497) 05/08/17 07:00 % Saturation 8 % (20-55) L 05/08/17 07:00 Transferrin 238.91 mg/dL (206-381) 05/08/17 07:00 Ferritin 33.1 ng/mL 05/08/17 07:00 Total Bilirubin 0.5 mg/dL (0.2-1.3) 05/13/17 05:15 AST 41 U/L (14-36) H 05/13/17 05:15 ALT 54 U/L (7-56) 05/13/17 05:15 Alkaline Phosphatase 57 U/L (38-126) 05/13/17 05:15 Lactate Dehydrogenase 230 U/L (333-699) L 05/08/17 18:15 Total Creatine Kinase < 20 U/L (35-230) L 05/08/17 18:15 Troponin I < 0.01 ng/mL 05/08/17 18:15 Total Protein 7.1 g/dL (5.8-8.3) 05/13/17 05:15 Albumin 3.9 g/dL (3.0-4.8) 05/13/17 05:15 Globulin 3.2 gm/dL 05/13/17 05:15 Albumin/Globulin Ratio 1.2 (1.1-1.8) 05/13/17 05:15 Triglycerides 69 mg/dL (35-160) 05/08/17 02:15 Cholesterol 129 mg/dL (130-200) L 05/08/17 02:15 LDL Cholesterol Direct 50 mg/dL (0-129) 05/08/17 02:15 HDL Cholesterol 65 mg/dL (29-60) H 05/08/17 02:15 Vitamin B12 343 pg/mL (239-931) 05/08/17 07:00 Folate 3.7 ng/mL 05/08/17 07:00 Free T4 0.81 ng/dL (0.78-2.19) 05/09/17 10:10 TSH 3rd Generation 0.47 mIU/mL (0.46-4.68) 05/09/17 10:10 Venous Blood Potassium 3.6 mmol/L (3.6-5.2) 05/08/17 02:15 Urine Color Yellow (YELLOW) 05/08/17 01:11 Urine Appearance Clear (CLEAR) 05/08/17 01:11 Urine pH 6.0 (4.7-8.0) 05/08/17 01:11 Ur Specific [place] 1.025 (1.005-1.035) 05/08/17 01:11 Urine Protein 30 mg/dL (<30 mg/dL) H 05/08/17 01:11 Urine Glucose (UA) Negative mg/dL (NEGATIVE) 05/08/17 01:11 Urine Ketones Negative mg/dL (NEGATIVE) 05/08/17 01:11 Urine Blood Moderate (NEGATIVE) H 05/08/17 01:11 Urine Nitrate Positive (NEGATIVE) H 05/08/17 01:11 Urine Bilirubin Negative (NEGATIVE) 05/08/17 01:11 Urine Urobilinogen 0.2 E.U./dL (<1 E.U./dL) 05/08/17 01:11 Ur Leukocyte Esterase Small Viviane/uL (NEGATIVE) H 05/08/17 01:11 Urine RBC 1 - 3 /hpf (0-2) 05/08/17 01:11 Urine WBC 25 - 30 /hpf (0-6) 05/08/17 01:11 Ur Epithelial Cells 1 - 3 /hpf (0-5) 05/08/17 01:11 Urine Bacteria Mod (NEG) 05/08/17 01:11 Urine Opiates Screen Negative (NEGATIVE) 05/08/17 00:40 Urine Methadone Screen Negative (NEGATIVE) 05/08/17 00:40 Ur Barbiturates Screen Negative (NEGATIVE) 05/08/17 00:40 Ur Phencyclidine Scrn Negative (NEGATIVE) 05/08/17 00:40 Ur Amphetamines Screen Negative (NEGATIVE) 05/08/17 00:40 U Benzodiazepines Scrn Negative (NEGATIVE) 05/08/17 00:40 U Oth Cocaine Metabols Negative (NEGATIVE) 05/08/17 00:40 U Cannabinoids Screen Negative (NEGATIVE) 05/08/17 00:40 Hepatitis A IgM Ab Negative (NEGATIVE) 05/08/17 02:15 Hep Bs Antigen Negative (NEGATIVE) 05/08/17 02:15 Hep B Core IgM Ab Negative (NEGATIVE) 05/08/17 02:15 Hepatitis C Antibody Negative (NEGATIVE) 05/08/17 02:15 HIV 1&2 Antibody Screen Negative (NEGATIVE) 05/08/17 02:15 - Hospital Course Hospital Course: Ms. Chandler is a 31 year old female with no significant past medical history who presented to the emergency department for evaluation and treatment of palpitations. 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 The pt admitted to localized retrosternal chest tightness when the palpitations are occurring with associated lightheadedness. EKG in ED revealed sinus tachycardia with intermittent PVCs vs fusion complxes with HR 118. Troponin was negative x4; TSH was unremarkable; UDS was negative; HIV and hepatitis panel were negative. Pt met SIRS criteria and was found to have UTI and treatment was started. Patient was transferred to telemetry unit for closer monitoring. Cardiology and ID were consulted and their recommendations were followed and appreciated. Urine cultures showed E.coli but no evidence of pyelonephritis. CXR was negative. Echo showed EF 61%, no pericardial effusion and was otherwise unremarkable. WRESTLING COACH was called for episode of tachycardia and was managed. Patient was transferred to [facility] for management and possible ablation. On morning of transfer, the patient offered no complaints. Information was provided to her by the medical team about her condition and what the process of ablation entails. The patient was understanding and had no questions. Patient stable for transfer. - Date & Time of H&P Date of H&P: 05/08/17 Time of H&P: 01:44 Discharge Exam - Head Exam Head Exam: ATRAUMATIC, NORMOCEPHALIC - Eye Exam Eye Exam: EOMI, Normal appearance, PERRL - ENT Exam ENT Exam: Mucous Membranes Moist, Normal Exam - Neck Exam Neck exam: Normal Inspection - Respiratory Exam Respiratory Exam: Clear to PA & Lateral, NORMAL BREATHING PATTERN, UNREMARKABLE. absent: Rales, Rhonchi, Wheezes - Cardiovascular Exam Cardiovascular Exam: RRR, +S1, +S2. absent: JVD - GI/Abdominal Exam GI & Abdominal Exam: Normal Bowel Sounds, Soft. absent: Distended, Tenderness - Extremities Exam Extremities exam: full ROM, normal inspection, pedal pulses present - Back Exam Back exam: NORMAL INSPECTION - Neurological Exam Neurological exam: Alert, Normal Gait, Oriented x3, Reflexes Normal - Psychiatric Exam Psychiatric exam: Normal Affect, Normal Mood - Skin Skin Exam: Normal Color, Warm Discharge Plan - Follow Up Plan Condition: STABLE Disposition: Trans to Other Acute Care Hosp Referrals: PCP,NO [Primary Care Provider] -
--- NOTE | 2017-05-13 15:13 | PN ---
DATE: 05/13/2017 REASON FOR THE CONSULTATION AND FOLLOWUP: Dizziness; chest pain; SVT, recurrent. SUBJECTIVE: Denies any chest pain. PHYSICAL EXAMINATION: VITAL SIGNS: Temperature afebrile, heart rate 60, blood pressure 92/70. HEENT: PERRLA. Extraocular muscles are intact. NECK: Supple. No carotid bruits. No thyromegaly. CHEST: Clear to auscultation. HEART: S1 and S2, regular. ABDOMEN: Soft. EXTREMITIES: Clubbing and cyanosis negative. LABORATORY DATA: Blood workup as follows; WBC 8.7, hemoglobin 11. , hematocrit 33.1, and platelet count 256. Chemistry shows sodium 140, potassium 3.9, chloride 106, carbon dioxide 25, anion gap of 14, BUN 12, and creatinine 0.6. IMPRESSION: Recurrent supraventricular tachycardia, tract infection. RECOMMENDATION: Continue digoxin, continue propranolol. DVT prophylaxis. Patient is n.p.o. Possible transfer to [facility] for radiofrequency ablation, discussed with the patient in length. We will follow with you. Dr. Dasilva will take care at [facility]. So far, the labs are within the normal limit. Brent Massey MD
== END 2017-05-13 11:26 | disposition short-term general hospital (02) | DRG 309 ==
LOC: ED 23:43 → ERH 05-08 01:44 → 2RSO 05-08 03:06 → OBSVTOIN 05-08 13:57
PROVIDERS: ADMIT Internal Medicine; ATTEND Internal Medicine
DX: I47.1 Supraventricular tachycardia (principal); I49.1 Atrial premature depolarization; N39.0 Urinary tract infection, site not specified; B96.20 Unspecified Escherichia coli [E. coli] as the cause of diseases classified elsewhere; D64.9 Anemia, unspecified; R79.89 Other specified abnormal findings of blood chemistry; Z80.41 Family history of malignant neoplasm of ovary; Z83.0 Family history of human immunodeficiency virus [HIV] disease